=== PATIENT | female | born 1935 | race Caucasian/White ===

== ENCOUNTER 2018-02-09 14:23 | Emergency (ER) | payer MEDICARE, OTHER ==
[2018-02-09] MEDS ORDERED: Sodium Chloride 0.9% 10 ML Syringe FLUSH PRN (14:47)
[2018-02-09] MEDS ORDERED: Aspirin 81 MG Tab.Chew PO ONE (14:47)
[2018-02-09] MEDS ORDERED: Nitroglycerin 0.4 MG Tab.SL SL PRN (14:47)
--- NOTE | 2018-02-09 14:55 | EDM.PDOC ---
ED HPI GENERAL MEDICAL PROBLEM - General Chief Complaint: Chest Pain Time Seen by Provider: 02/09/18 14:40 Source of Information: Reports: Patient, RN History Limitations: Reports: No Limitations - History of Present Illness INITIAL COMMENTS - FREE TEXT/NARRATIVE: 82 yr female presents with mid sternal chest pain and radiates into back. States started around 45 minutes ago. She has had ASA 324mg PO now. EKG with nonspecific ST and T wave abnormality. - Related Data Allergies Allergy/AdvReac Type Severity Reaction Status Date / Time lisinopril Allergy Cannot Verified 05/24/16 09:51 Remember Home Meds: Home Meds Amitriptyline [Elavil] 25 mg PO QPM 10/19/14 [History] Atenolol [Tenormin] 50 mg PO DAILY 10/19/14 [History] Cyclobenzaprine [Flexeril] 5 mg PO QPM 10/19/14 [History] Omeprazole [Prilosec] 20 mg PO DAILY 10/19/14 [History] Pravastatin [Pravachol] 40 mg PO DAILY 10/19/14 [History] Sertraline HCl 50 mg PO DAILY 10/19/14 [History] amLODIPine Besylate [Amlodipine Besylate] 5 mg PO DAILY 10/19/14 [History] metFORMIN [Glucophage] 500 mg PO BID 10/19/14 [History] Hydrochlorothiazide 25 mg PO DAILY 04/08/16 [History] L.acidoph,Paracasei, B.lactis [Probiotic] 1 each PO DAILY 04/08/16 [History] Naproxen Sodium [Aleve] 2 tab PO DAILY 04/08/16 [History] Warfarin [Coumadin] 2 mg PO DAILY 04/08/16 [History] Past Medical History Cardiovascular History: Reports: Angina, High Cholesterol, Hypertension Gastrointestinal History: Reports: GERD, Irritable Bowel Syndrome 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: Musculoskeletal History: Reports: Arthritis, Osteoarthritis Neurological History: Reports: CVA Psychiatric History: Reports: Depression, Panic Attack Endocrine/Metabolic History: Reports: Diabetes, Type II - Infectious Disease History Infectious Disease History: Reports: Chicken Pox, Measles - Past Surgical History HEENT Surgical History: Reports: Tonsillectomy GI Surgical History: Reports: Appendectomy, Cholecystectomy ED ROS GENERAL - Review of Systems Review Of Systems: See Below Constitutional: Reports: No Symptoms HEENT: Reports: No Symptoms Respiratory: Reports: No Symptoms Cardiovascular: Reports: Chest Pain. Denies: Edema GI/Abdominal: Reports: No Symptoms Musculoskeletal: Reports: Back Pain Skin: Reports: No Symptoms Neurological: Reports: No Symptoms Psychiatric: Reports: No Symptoms Hematologic/Lymphatic: Reports: No Symptoms ED EXAM, GENERAL - Physical Exam Exam: See Below Exam Limited By: No Limitations General Appearance: Alert, No Apparent Distress Ears: Hearing Grossly Normal Nose: Normal Inspection Throat/Mouth: Normal Inspection, No Airway Compromise Head: Atraumatic, Normocephalic Neck: Normal Inspection, Supple, Non-Tender Respiratory/Chest: No Respiratory Distress, Lungs Clear, Normal Breath Sounds Cardiovascular: Normal Peripheral Pulses, Regular Rate, Rhythm, No Edema GI/Abdominal: Soft, Non-Tender Back Exam: Normal Inspection Extremities: Normal Inspection, Non-Tender, No Pedal Edema, Normal Capillary Refill Neurological: Alert, Oriented, Normal Cognition Psychiatric: Normal Affect, Normal Mood Skin Exam: Warm, Dry, Normal Color Lymphatic: No Adenopathy Course - Vital Signs Last Recorded V/S: Last Vital Signs Temp 97.6 F 02/09/18 14:28 Pulse 70 02/09/18 14:28 Resp 12 02/09/18 14:28 BP 156/54 H 02/09/18 14:50 Pulse Ox 100 02/09/18 14:28 - Orders/Labs/Meds Orders: Active Orders 24 hr Category Date Time Status Cardiac Monitoring [RC] .As Directed Care 02/09/18 14:47 Active EKG Documentation Completion [RC] ASDIRECTED Care 02/09/18 14:48 Active Chest 1V Frontal [CR] Stat Exams 02/09/18 14:48 Ordered Nitroglycerin [Nitrostat] Med 02/09/18 14:47 Active 0.4 mg SL Q5M PRN Sodium Chloride 0.9% [Saline Flush] Med 02/09/18 14:47 Active 10 ml FLUSH ASDIRECTED PRN Saline Lock Insert [OM.PC] Stat Oth 02/09/18 14:47 Ordered Medication Orders Nitroglycerin (Nitrostat) 0.4 mg SL Q5M PRN PRN Reason: Chest Pain Stop: 02/10/18 14:47 Last Admin: 02/09/18 14:50 Dose: 0.4 mg Sodium Chloride (Saline Flush) 10 ml FLUSH ASDIRECTED PRN PRN Reason: Keep Vein Open Labs: Laboratory Tests 02/09/18 02/09/18 Range/Units 14:47 14:47 WBC 8.9 (4.0-11.0) K/uL RBC 4.14 (3.80-5.80) M/uL Hgb 10.4 L (11.5-16.5) g/dL Hct 32.7 L (37.0-47.0) % MCV 79 (76-96) fL MCH 25.1 L (27.0-32.0) pg MCHC 31.8 (31.0-35.0) g/dL RDW 15.5 (11.0-16.0) % Plt Count 247 (150-500) K/uL MPV 10.4 H (6.0-10.0) fL Neut % (Auto) 65.6 (45.0-70.0) % Lymph % (Auto) 24.4 (20.0-40.0) % Houghton % (Auto) 7.9 (3.0-10.0) % Eos % (Auto) 1.8 (1.0-5.0) % Baso % (Auto) 0.3 (0.0-0.5) % Neut # (Auto) 5.85 (2.00-7.50) K/uL Lymph # (Auto) 2.17 (1.50-4.00) K/uL Houghton # (Auto) 0.70 (0.20-0.80) K/uL Eos # (Auto) 0.16 (0.04-0.40) K/uL Baso # (Auto) 0.03 (0.02-0.10) K/uL Sodium 139 (136-145) mmol/L Potassium 3.8 (3.5-5.1) mmol/L Chloride 103 (98-107) mmol/L Carbon Dioxide 23.9 (21.0-32.0) mmol/L Anion Gap 15.9 H (5.0-15.0) mmol/L BUN 23 (8-26) mg/dL Creatinine 1.41 H (0.55-1.02) mg/dL Est Cr Clr Drug Dosing TNP Estimated GFR (MDRD) 36 L (>60) MLS/MIN BUN/Creatinine Ratio 16.3 (6-25) Glucose 136 H D (74-100) mg/dL Calcium 8.8 (8.5-10.1) mg/dL Total Bilirubin 0.4 (0.0-1.0) mg/dL AST 30 (15-37) U/L ALT 24 (12-78) U/L Alkaline Phosphatase 83 (46-116) U/L Troponin I < 0.017 (0.000-0.060) ng/mL Total Protein 8.3 H (6.4-8.2) g/dL Albumin 3.9 (3.4-5.0) g/dL Globulin 4.4 H (2.2-4.2) g/dL Albumin/Globulin Ratio 0.9 (0.8-2.0) Meds: Medications Generic Name Dose Route Start Last Admin Trade Name Freq PRN Reason Stop Dose Admin Nitroglycerin 0.4 mg 02/09/18 14:47 02/09/18 14:50 Nitrostat SL 02/10/18 14:47 0.4 mg Q5M PRN Administration Chest Pain Sodium Chloride 10 ml 02/09/18 14:47 Saline Flush FLUSH ASDIRECTED PRN Keep Vein Open Discontinued Medications Generic Name Dose Route Start Last Admin Trade Name Freq PRN Reason Stop Dose Admin Aspirin 324 mg 02/09/18 14:47 02/09/18 14:30 Aspirin PO 02/09/18 14:48 324 mg ONETIME ONE Administration - Re-Assessments/Exams Free Text/Narrative Re-Assessment/Exam: 02/09/18 15:52 Pt states no more chest pain. Family report pt having more stress with taking care of another's sibling, dog. ASA and nitro 1 tablet given and no more chest pain. Pt may take Nitro 1 tablet under tongue at home, if chest pain. Take while sitting and if family is with her, if pain unrelieved , call 911. Pt to return to ER if chest pain returns. F/U in clinic next week with PCP. Departure - Departure Time of Disposition: 15:45 Disposition: Home, Self-Care 01 Condition: Good Clinical Impression: Atypical chest pain Instructions: Nitroglycerin sustained-release tablets or capsules, Angina Pectoris, [id number] Referrals: PCP,None [Primary Care Provider] - Forms: ED Department Discharge Additional Instructions: Follow up with primary care provider in the clinic in 1 week and have hemaglobin re-checked - My Orders Last 24 Hours: My Active Orders 02/09/18 14:47 Cardiac Monitoring [RC] .As Directed Nitroglycerin [Nitrostat] 0.4 mg SL Q5M PRN Sodium Chloride 0.9% [Saline Flush] 10 ml FLUSH ASDIRECTED PRN Saline Lock Insert [OM.PC] Stat 02/09/18 14:48 EKG Documentation Completion [RC] ASDIRECTED Chest 1V Frontal [CR] Stat - Assessment/Plan Last 24 Hours: My Active Orders 02/09/18 14:47 Cardiac Monitoring [RC] .As Directed Nitroglycerin [Nitrostat] 0.4 mg SL Q5M PRN Sodium Chloride 0.9% [Saline Flush] 10 ml FLUSH ASDIRECTED PRN Saline Lock Insert [OM.PC] Stat 02/09/18 14:48 EKG Documentation Completion [RC] ASDIRECTED Chest 1V Frontal [CR] Stat
[2018-02-09 15:24] VITALS: BP 156/54
--- NOTE | 2018-02-09 17:33 | CR ---
DATE OF SERVICE: 02/09/18 CLINICAL DATA: Chest Pain PORTABLE CHEST: Comparison is made to a prior exam dated 04/15/17. The heart is enlarged. It is increased in size from the prior exam. The lungs appear clear. No pneumothorax. No pleural effusions. No other significant findings. [id number] [facility]
== END 2018-02-09 14:45 | disposition home or self-care (01) ==
LOC: LB.ED 14:23
DX: R07.89 Other chest pain (principal); E78.00 Pure hypercholesterolemia, unspecified; I10 Essential (primary) hypertension; K21.9 Gastro-esophageal reflux disease without esophagitis; E11.9 Type 2 diabetes mellitus without complications; Z88.8 Allergy status to other drugs, medicaments and biological substances; Z79.899 Other long term (current) drug therapy; Z79.84 Long term (current) use of oral hypoglycemic drugs; Z79.01 Long term (current) use of anticoagulants
CPT/HCPCS: 36415; 71045; 80053; 84484; 85025; 93005; 99285; A9270

== ENCOUNTER 2018-10-31 13:34 | Emergency (ER) | payer MEDICARE, OTHER ==
[2018-10-31 14:04] VITALS: BP 145/51
--- NOTE | 2018-10-31 14:53 | EDM.PDOC ---
ED HPI GENERAL MEDICAL PROBLEM - General Chief Complaint: Head Injury Stated Complaint: FALL AT 0930 TODAY Time Seen by Provider: 10/31/18 14:00 - History of Present Illness Treatments FLAMER AFTER LASTING: Reports: NSAIDS right upper eye Pain Score (Numeric/FACES): 1 - Related Data Allergies Allergy/AdvReac Type Severity Reaction Status Date / Time lisinopril Allergy Cannot Verified 05/24/16 09:51 Remember Home Meds: Home Meds Atenolol [Tenormin] 50 mg PO DAILY 10/19/14 [History] Omeprazole [Prilosec] 20 mg PO DAILY 10/19/14 [History] Pravastatin [Pravachol] 40 mg PO DAILY 10/19/14 [History] Sertraline HCl 50 mg PO DAILY 10/19/14 [History] amLODIPine Besylate [Amlodipine Besylate] 5 mg PO DAILY 10/19/14 [History] metFORMIN [Glucophage] 500 mg PO BID 10/19/14 [History] Hydrochlorothiazide 25 mg PO DAILY 04/08/16 [History] L.acidoph,Paracasei, B.lactis [Probiotic] 1 each PO DAILY 04/08/16 [History] Naproxen Sodium [Aleve] 2 tab PO DAILY 04/08/16 [History] Warfarin [Coumadin] 2 mg PO DAILY 04/08/16 [History] Past Medical History Cardiovascular History: Reports: Angina, High Cholesterol, Hypertension Gastrointestinal History: Reports: GERD, Irritable Bowel Syndrome 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 ED EXAM, HEAD INJURY - Physical Exam Exam: See Below Exam Limited By: No Limitations General Appearance: Alert, WD/WN, No Apparent Distress Head: Normocephalic, Scalp Abrasions, Scalp Ecchymosis, Scalp Hematoma, Other ( bruising with overlying abrasion right forehead and around eye.) Eyes: Bilateral Eye: Normal Fundi, Normal Inspection, PERRL Ears: Normal External Exam Nose: Normal Inspection Throat/Mouth: Normal Inspection Neck: Non-Tender, Full Range of Motion, Normal Alignment, Normal Inspection Respiratory: No Respiratory Distress, No Accessory Muscle Use Extremities: Normal Range of Motion Neurologic: Alert, Normal Mood/Affect, Oriented x 3 Skin: Normal Color, Warm/Dry - Joseph Coma Score Best Eye Response (Merlin): (4) Open Spontaneously Best Verbal Response (Joseph): (5) Oriented Best Motor Response (Merlin): (6) Obeys Commands Course - Vital Signs Last Recorded V/S: Last Vital Signs Temp 36.2 C 10/31/18 13:50 Pulse 62 10/31/18 13:50 Resp 16 10/31/18 13:50 BP 145/51 H 10/31/18 13:50 Pulse Ox 95 10/31/18 13:50 - Orders/Labs/Meds Orders: Active Orders 24 hr Category Date Time Status Head wo Cont [CT] Stat Exams 10/31/18 14:06 Taken - Re-Assessments/Exams Free Text/Narrative Re-Assessment/Exam: 10/31/18 14:51 This patient presents for evaluation after trauma to the head as detailed above. This patient has a history and clinical exam consistent with closed head injury The differential diagnosis includes skull fracture, epidural hematoma, subdural hematoma, intracerebral hemorrhage, and traumatic subarachnoid hemorrhage; all of these are highly unlikely in this clinical setting. This patient denies severe headache, seizure, and has no focal neurological findings. The patient did not have prolonged LOC, sleepiness, repeated emesis, poor orientation, or significant irritability. I have discussed the risk/ benefit analysis with the patient and family regarding CT imaging. Given her use of Coumadin, a head CT was obtained and was negative for acute findings. The patient/family understand that they must return if any "red flags" appear/ develop in the coming hours/days, as this may represent an indication to perform a CT scan. I have noted that "red flags" for when to return immediately include: headaches that get worse, increased drowsiness, strange behavior, repetitive speech, seizures, repeated vomiting, growing confusion, increased irritability, slurred speech, weakness or numbness, and loss of responsiveness. This information will also be provided in writing at discharge. I have discussed the second impact syndrome, and the importance of not sustaining repeated concussion in the next 1-2 weeks. Post concussive syndrome is also discussed. The patients head to toe trauma exam is otherwise negative for serious underlying disease of the head, neck, chest, abdomen, extremities, pelvis. Departure - Departure Time of Disposition: 14:52 Disposition: Home, Self-Care 01 Condition: Good Clinical Impression: Closed head injury - Discharge Information *PRESCRIPTION DRUG MONITORING PROGRAM REVIEWED*: Not Applicable *COPY OF PRESCRIPTION DRUG MONITORING REPORT IN PATIENT KRISTOPHER: Not Applicable Instructions: Head Injury, Adult, [id number] - My Orders Last 24 Hours: My Active Orders 10/31/18 14:06 Head wo Cont [CT] Stat - Assessment/Plan Last 24 Hours: My Active Orders 10/31/18 14:06 Head wo Cont [CT] Stat
--- NOTE | 2018-11-02 05:14 | CT ---
DATE OF SERVICE: 10/31/18 CLINICAL DATA: Head injury. UNENHANCED BRAIN CT: Multislice acquisition through the brain without IV contrast was performed. Comparison is made to a prior exam dated 06/18/12. There is diffuse cerebral atrophy. There are periventricular lucencies bilaterally consistent with small vessel ischemic change. No masses or mass effect. No intracranial hemorrhage. No evidence of acute or subacute infarct. There is hyperdense soft tissue swelling of the scalp in the right anterior parietal region consistent with a cephalohematoma. No underlying fractures. IMPRESSION: No acute intracranial abnormalities. [id number] [facility]
== END 2018-10-31 14:52 | disposition home or self-care (01) ==
LOC: LB.ED 13:34
DX: S00.03XA Contusion of scalp, initial encounter (principal); S00.83XA Contusion of other part of head, initial encounter; S00.11XA Contusion of right eyelid and periocular area, initial encounter; S09.90XA Unspecified injury of head, initial encounter; E78.00 Pure hypercholesterolemia, unspecified; I10 Essential (primary) hypertension; K21.9 Gastro-esophageal reflux disease without esophagitis; F32.9 Major depressive disorder, single episode, unspecified; E11.9 Type 2 diabetes mellitus without complications; Z88.8 Allergy status to other drugs, medicaments and biological substances; Z79.01 Long term (current) use of anticoagulants; W19.XXXA Unspecified fall, initial encounter
CPT/HCPCS: 70450; 99283-25

== ENCOUNTER 2019-07-08 23:43 | Emergency (ER) | payer MEDICARE, OTHER ==
--- NOTE | 2019-07-09 00:19 | EDM.PDOC ---
ED HPI GENERAL MEDICAL PROBLEM - General Chief Complaint: Head Injury Stated Complaint: FALL AT HOME Time Seen by Provider: 07/09/19 00:05 Source of Information: Reports: Patient History Limitations: Reports: No Limitations - History of Present Illness INITIAL COMMENTS - FREE TEXT/NARRATIVE: This is a 83yo F here for a recent fall and hitting her head. She was leaning and hit her head pretty hard on the wall. She denies any loss of consciousness. She is on anticoagulation. Onset: Sudden Location: Reports: Head Quality: Reports: Ache Severity: Mild Improves with: Reports: None Worsens with: Reports: None Associated Symptoms: Reports: No Other Symptoms - Related Data Allergies Allergy/AdvReac Type Severity Reaction Status Date / Time lisinopril Allergy Cannot Verified 10/31/18 15:08 Remember Home Meds: Home Meds Omeprazole [Prilosec] 20 mg PO DAILY 10/19/14 [History] Pravastatin [Pravachol] 40 mg PO DAILY 10/19/14 [History] Sertraline HCl 50 mg PO DAILY 10/19/14 [History] amLODIPine Besylate [Amlodipine Besylate] 5 mg PO DAILY 10/19/14 [History] atenoloL [Tenormin] 50 mg PO DAILY 10/19/14 [History] metFORMIN [Glucophage] 500 mg PO BID 10/19/14 [History] Hydrochlorothiazide 25 mg PO DAILY 04/08/16 [History] L.acidoph,Paracasei, B.lactis [Probiotic] 1 each PO DAILY 04/08/16 [History] Naproxen Sodium [Aleve] 2 tab PO DAILY PRN 04/08/16 [History] Warfarin [Coumadin] 2 mg PO DAILY 04/08/16 [History] Past Medical History Cardiovascular History: Reports: Angina, High Cholesterol, Hypertension Gastrointestinal History: Reports: GERD, Irritable Bowel Syndrome 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 ED EXAM, HEAD INJURY - Physical Exam Exam: See Below Exam Limited By: No Limitations General Appearance: Alert, WD/WN, No Apparent Distress Head: Scalp Swelling, Scalp Abrasions, Scalp Tenderness Eyes: Bilateral Eye: EOMI, PERRL Ears: Normal External Exam Nose: Normal Inspection Course - Vital Signs Last Recorded V/S: Last Vital Signs Temp 36.9 C 07/09/19 00:35 Pulse 78 07/09/19 00:35 Resp 18 07/09/19 00:35 BP 152/83 H 07/09/19 00:35 Pulse Ox Departure - Departure Time of Disposition: 00:55 Disposition: Home, Self-Care 01 Condition: Good Clinical Impression: Fall Qualifiers: Encounter type: initial encounter Qualified Code(s): W19.XXXA - Unspecified fall, initial encounter Head contusion Qualifiers: Encounter type: initial encounter Contusion of head detail: scalp Qualified Code(s): S00.03XA - Contusion of scalp, initial encounter - Discharge Information Referrals: Lencho Pandey MD [Primary Care Provider] - Forms: ED Department Discharge Sepsis Event Note - Focused Exam Date Exam was Performed: 07/09/19 Time Exam was Performed: 15:19 - Problem List & Annotations (1) Closed head injury SNOMED Code(s): 029969219766 Code(s): S09.90XA - UNSPECIFIED INJURY OF HEAD, INITIAL ENCOUNTER Status: Acute Priority: High Qualifiers: Encounter type: initial encounter Qualified Code(s): S09.90XA - Unspecified injury of head, initial encounter (2) Fall SNOMED Code(s): 5406514, 125628685 Code(s): W19.XXXA - UNSPECIFIED FALL, INITIAL ENCOUNTER Status: Acute Priority: High Qualifiers: Encounter type: initial encounter Qualified Code(s): W19.XXXA - Unspecified fall, initial encounter (3) Head contusion SNOMED Code(s): 386428927 Code(s): S00.93XA - CONTUSION OF UNSPECIFIED PART OF HEAD, INITIAL ENCOUNTER Status: Acute Priority: High Qualifiers: Encounter type: initial encounter Contusion of head detail: scalp Qualified Code(s): S00.03XA - Contusion of scalp, initial encounter - Problem List Review Problem List Initiated/Reviewed/Updated: Yes - Assessment/Plan Plan: Counseled on CT results. Discussed close monitoring of Neurological status and f /u for any changes. Rtc as routine f/u. Return to ER as directed.
[2019-07-09 00:37] VITALS: BP 152/83; PULSE 78
--- NOTE | 2019-07-09 09:15 | CT ---
Date of Service: 07/08/19 Clinical Data: Fall and hit head and is on anticoagulation UNENHANCED BRAIN CT: Multislice acquisition through the brain without IV contrast was performed. Comparison is made to a prior exam dated 10/31/18. There is mild diffuse cerebral atrophy. There are periventricular lucencies bilaterally consistent with small vessel ischemic change. No masses or mass effect. No intracranial hemorrhage. No evidence of acute or subacute infarct. No fractures. IMPRESSION: No acute intracranial abnormalities. [id number] [facility]
== END 2019-07-09 00:58 | disposition home or self-care (01) ==
LOC: LB.ED 23:43
DX: S00.03XA Contusion of scalp, initial encounter (principal); E11.9 Type 2 diabetes mellitus without complications; I10 Essential (primary) hypertension; Z79.899 Other long term (current) drug therapy; Z79.01 Long term (current) use of anticoagulants; Z88.8 Allergy status to other drugs, medicaments and biological substances; W19.XXXA Unspecified fall, initial encounter
CPT/HCPCS: 70450; 99283; 99283-25

== ENCOUNTER 2021-06-14 12:41 | Observation (INO) | payer MEDICARE, OTHER ==
[2021-06-14] MEDS ORDERED: Sodium Chloride 0.9% 500 ML IV ONE (14:05)
[2021-06-14] MEDS ORDERED: Sodium Chloride 0.9% 10 ML Syringe FLUSH PRN (14:05)
[2021-06-14] MEDS: Albuterol/Ipratropium 3.0-0.5 MG/3 ML Neb Soln NEB PRN (14:18)
--- NOTE | 2021-06-14 14:23 | EDM.PDOC ---
ED HPI GENERAL MEDICAL PROBLEM - General Chief Complaint: Respiratory Problem Stated Complaint: NOT FEELING WELL Time Seen by Provider: 06/14/21 14:00 Source of Information: Reports: Patient, Family History Limitations: Reports: No Limitations - History of Present Illness INITIAL COMMENTS - FREE TEXT/NARRATIVE: 85-year-old female presents to the ED complaining of not feeling well, cough, diarrhea. Patient had a gradual onset of her illness starting on June 01. Symptoms continued to get worse at a gradual rate associated with decreased oral intake and weakness/fatigue. Patient has not felt this poor in the past. Patient has somewhere between 3-4 episodes of diarrhea daily. Patient denies chest pain, shortness of breath, dizzy lightheaded/syncope/near syncope, co nstipation, headache, difficulty swallowing, red swollen joints, rash, trauma. Treatments [employer]: Reports: Acetaminophen, Other (see below) (Emergent C) - Related Data Allergies Allergy/AdvReac Type Severity Reaction Status Date / Time lisinopril Allergy Cannot Verified 10/31/18 15:08 Remember Home Meds: Home Meds Omeprazole [Prilosec] 20 mg PO DAILY 10/19/14 [History] Pravastatin [Pravachol] 40 mg PO DAILY 10/19/14 [History] Sertraline HCl 50 mg PO DAILY 10/19/14 [History] amLODIPine Besylate [Amlodipine Besylate] 5 mg PO DAILY 10/19/14 [History] atenoloL [Tenormin] 50 mg PO DAILY 10/19/14 [History] metFORMIN [Glucophage] 500 mg PO BID 10/19/14 [History] Hydrochlorothiazide 25 mg PO DAILY 04/08/16 [History] L.acidoph,Paracasei, B.lactis [Probiotic] 1 each PO DAILY 04/08/16 [History] Naproxen Sodium [Aleve] 2 tab PO DAILY PRN 04/08/16 [History] Warfarin [Coumadin] 2 mg PO DAILY 04/08/16 [History] Past Medical History Cardiovascular History: Reports: Angina, High Cholesterol, Hypertension, Other (See Below) (Irregular heartbeat) Gastrointestinal History: Reports: GERD, Irritable Bowel Syndrome [employer] History: Reports: Musculoskeletal History: Reports: Arthritis, Osteoarthritis Neurological History: Reports: CVA Psychiatric History: Reports: Depression, Panic Attack Endocrine/Metabolic History: Reports: Diabetes, Type II - Infectious Disease History Infectious Disease History: Reports: Chicken Pox, Measles - Past Surgical History HEENT Surgical History: Reports: Tonsillectomy GI Surgical History: Reports: Appendectomy, Cholecystectomy Social & Family History - Family History Family Medical History: Unobtainable - Caffeine Use Caffeine Use: Reports: None ED ROS GENERAL - Review of Systems Review Of Systems: Comprehensive ROS is negative, except as noted in HPI. ED EXAM, GENERAL - Physical Exam Exam: See Below Free Text/Narrative:: 85-year-old female, ABC intact, no apparent distress, speaking in full sentences alert and oriented through three GCS 4 five six no obvious trauma Exam Limited By: No Limitations General Appearance: Alert, WD/WN, No Apparent Distress Eye Exam: Bilateral Eye: EOMI, PERRL Ears: Normal External Exam, Normal Canal, Hearing Grossly Normal, Normal TMs Ear Exam: Bilateral Ear: TM normal Nose: Normal Inspection, Normal Mucosa, No Blood Throat/Mouth: Normal Lips, Other (Mild erythema to the posterior pharynx tonsils and uvula, no exudate, evidence of postnasal drip.) Head: Atraumatic, Normocephalic Neck: Normal Inspection, Non-Tender. 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 tillman) Cardiovascular: No Edema, No JVD, Other (Regular rate, irregular rhythm) GI/Abdominal: Soft, Non-Tender, No Distention, No Mass Back Exam: Normal Inspection, CVA Tenderness (R), CVA Tenderness (L) Extremities: Normal Inspection, Normal Range of Motion, Non-Tender, No Pedal Edema, Normal Capillary Refill Neurological: Alert, Oriented, Normal Cognition Psychiatric: Normal Affect, Normal Mood Skin Exam: Warm, Dry, Intact, Normal Color, No Rash Lymphatic: No Adenopathy #1 Interpretation EKG Date: 06/14/21 (Atrial fibrillation, without rapid ventricular response, ST depression in V2 V3 V4 V5 V6) Rhythm: A-Fib Course - Vital Signs Last Recorded V/S: Last Vital Signs Temp 97.3 F 06/14/21 13:48 Pulse 87 06/14/21 13:48 Resp 18 06/14/21 13:48 BP 109/51 L 06/14/21 13:48 Pulse Ox 98 06/14/21 13:48 - Orders/Labs/Meds Orders: Active Orders 24 hr Category Date Time Status Patient Status [ADT] Routine ADT 06/14/21 15:58 Active Cardiac Monitoring [RC] CONTINUOUS Care 06/14/21 16:04 Active Oxygen Therapy [RC] PRN Care 06/14/21 15:58 Active Pulse Oximetry [RC] CONTINUOUS Care 06/14/21 16:04 Active RT Aerosol Therapy [RC] ASDIRECTED Care 06/14/21 14:05 Active Up With Assistance [RC] ASDIRECTED Care 06/14/21 16:03 Active VTE/DVT Education [RC] Per Unit Routine Care 06/14/21 15:58 Active Vital Signs [RC] Q4H Care 06/14/21 15:58 Active Regular Diet [DIET] Diet 06/14/21 Dinner Ordered Chest 1V Frontal [CR] Stat Exams 06/14/21 14:58 Taken CORONAVIRUS COVID-19 RAPID [MOLEC] Stat Lab 06/14/21 13:35 Ordered INR,PT,PROTHROMBIN TIME [COAG] Stat Lab 06/14/21 15:25 Ordered UA RFX SORAYA AND CULT IF INDIC [URIN] Stat Lab 06/14/21 14:30 Ordered Albuterol/Ipratropium [DuoNeb 3.0-0.5 MG/3 ML] Med 06/14/21 14:05 Active 3 ml NEB Q2H PRN Sodium Chloride 0.9% [Saline Flush] Med 06/14/21 14:05 Active 10 ml FLUSH ASDIRECTED PRN Antiembolic Hose [OM.PC] Per Unit Routine Oth 06/14/21 16:04 Ordered Saline Lock Insert [OM.PC] Routine Oth 06/14/21 14:05 Ordered Resuscitation Status Routine Resus Stat 06/14/21 15:58 Ordered EKG 12 Lead [EK] Routine Ther 06/14/21 14:01 Ordered Medication Orders Albuterol/Ipratropium (Albuterol/Ipratropium 3.0-0.5 Mg/3 Ml Neb Soln) 3 ml NEB Q2H PRN PRN Reason: Cough Last Admin: 06/14/21 14:18 Dose: 3 ml Documented by: DEMETRIUS Sodium Chloride (Sodium Chloride 0.9% 10 Ml Syringe) 10 ml FLUSH ASDIRECTED PRN PRN Reason: Keep Vein Open Labs: Laboratory Tests 06/14/21 06/14/21 06/14/21 Range/Units 02:18 02:18 02:18 WBC 14.5 H D (4.0-11.0) K/uL RBC 3.86 (3.80-5.80) M/uL Hgb 9.9 L (11.5-16.5) g/dL Hct 29.0 L (37.0-47.0) % MCV 75 L (76-96) fL MCH 25.6 L (27.0-32.0) pg MCHC 34.1 (31.0-35.0) g/dL RDW 16.1 H (11.0-16.0) % Plt Count 645 H* D (150-500) K/uL MPV 10.1 H (6.0-10.0) fL Neut % (Auto) 84.6 H (45.0-70.0) % Lymph % (Auto) 7.5 L (20.0-40.0) % Dyer % (Auto) 7.7 (3.0-10.0) % Eos % (Auto) 0.1 L (1.0-5.0) % Baso % (Auto) 0.1 (0.0-0.5) % Neut # (Auto) 12.27 H (2.00-7.50) K/uL Lymph # (Auto) 1.09 L (1.50-4.00) K/uL Dyer # (Auto) 1.12 H (0.20-0.80) K/uL Eos # (Auto) 0.02 L (0.04-0.40) K/uL Baso # (Auto) 0.02 (0.02-0.10) K/uL D-Dimer, Quantitative 2080 H (0-400) ng/mL Sodium 128 L (136-145) mmol/L Potassium 2.6 L* D (3.5-5.1) mmol/L Chloride 94 L (98-107) mmol/L Carbon Dioxide 18.2 L (21.0-32.0) mmol/L Anion Gap 18.4 H (5.0-15.0) mmol/L BUN 76 H* D (8-26) mg/dL Creatinine 1.82 H D (0.55-1.02) mg/dL Est Cr Clr Drug Dosing TNP Estimated GFR (MDRD) 26 L (>60) MLS/MIN BUN/Creatinine Ratio 41.8 H (6-25) Glucose 138 H D (74-100) mg/dL Lactic Acid (0.4-2.0) mmol/L Calcium 7.8 L (8.5-10.1) mg/dL Magnesium (1.8-2.4) mg/dL Total Bilirubin 0.5 D (0.0-1.0) mg/dL AST 63 H (15-37) U/L ALT 79 H (12-78) U/L Alkaline Phosphatase 160 H (46-116) U/L Troponin I 0.017 (0.000-0.060) ng/mL Total Protein 8.6 H (6.4-8.2) g/dL Albumin 2.7 L (3.4-5.0) g/dL Globulin 5.9 H (2.2-4.2) g/dL Albumin/Globulin Ratio 0.5 L (0.8-2.0) SARS-CoV-2 RNA (SCOTT) (NEGATIVE) 06/14/21 06/14/21 06/14/21 Range/Units 13:42 14:15 14:18 WBC (4.0-11.0) K/uL RBC (3.80-5.80) M/uL Hgb (11.5-16.5) g/dL Hct (37.0-47.0) % MCV (76-96) fL MCH (27.0-32.0) pg MCHC (31.0-35.0) g/dL RDW (11.0-16.0) % Plt Count (150-500) K/uL MPV (6.0-10.0) fL Neut % (Auto) (45.0-70.0) % Lymph % (Auto) (20.0-40.0) % Dyer % (Auto) (3.0-10.0) % Eos % (Auto) (1.0-5.0) % Baso % (Auto) (0.0-0.5) % Neut # (Auto) (2.00-7.50) K/uL Lymph # (Auto) (1.50-4.00) K/uL Dyer # (Auto) (0.20-0.80) K/uL Eos # (Auto) (0.04-0.40) K/uL Baso # (Auto) (0.02-0.10) K/uL D-Dimer, Quantitative (0-400) ng/mL Sodium (136-145) mmol/L Potassium (3.5-5.1) mmol/L Chloride (98-107) mmol/L Carbon Dioxide (21.0-32.0) mmol/L Anion Gap (5.0-15.0) mmol/L BUN (8-26) mg/dL Creatinine (0.55-1.02) mg/dL Est Cr Clr Drug Dosing Estimated GFR (MDRD) (>60) MLS/MIN BUN/Creatinine Ratio (6-25) Glucose (74-100) mg/dL Lactic Acid 1.5 (0.4-2.0) mmol/L Calcium (8.5-10.1) mg/dL Magnesium 1.2 L (1.8-2.4) mg/dL Total Bilirubin (0.0-1.0) mg/dL AST (15-37) U/L ALT (12-78) U/L Alkaline Phosphatase (46-116) U/L Troponin I (0.000-0.060) ng/mL Total Protein (6.4-8.2) g/dL Albumin (3.4-5.0) g/dL Globulin (2.2-4.2) g/dL Albumin/Globulin Ratio (0.8-2.0) SARS-CoV-2 RNA (SCOTT) Positive H (NEGATIVE) Meds: Medications Generic Name Dose Route Start Last Admin Trade Name Freq PRN Reason Stop Dose Admin Albuterol/Ipratropium 3 ml 06/14/21 14:05 06/14/21 14:18 Albuterol/Ipratropium 3.0-0.5 Mg/3 Ml Neb Soln NEB 3 ml Q2H PRN Administration Cough Sodium Chloride 10 ml 06/14/21 14:05 Sodium Chloride 0.9% 10 Ml Syringe FLUSH ASDIRECTED PRN Keep Vein Open Discontinued Medications Generic Name Dose Route Start Last Admin Trade Name Freq PRN Reason Stop Dose Admin Azithromycin Confirm 06/14/21 15:35 Azithromycin 500 Mg Tab Administered 06/14/21 15:36 Dose 500 mg .ROUTE .STK-MED ONE Sodium Chloride 500 mls @ 500 mls/hr 06/14/21 14:05 06/14/21 14:40 Normal Saline IV 06/14/21 15:04 500 mls/hr .BOLUS ONE Administration Potassium Chloride Confirm 06/14/21 15:36 Kcl In Water 10 Meq/50 Ml Administered 06/14/21 15:37 Dose 200 mls @ as directed .ROUTE .STK-MED ONE Lorazepam 0.5 mg 06/14/21 16:03 Lorazepam 2 Mg/Ml Sdv IV 06/14/21 16:04 ONETIME ONE Departure - Departure Time of Disposition: 16:15 Disposition: Refer to Observation Condition: Fair Clinical Impression: COVID-19, Hypokalemia due to excessive gastrointestinal loss of potassium, Dehydration - Discharge Information *PRESCRIPTION DRUG MONITORING PROGRAM REVIEWED*: No *COPY OF PRESCRIPTION DRUG MONITORING REPORT IN PATIENT KRISTOPHER: No Referrals: PCP,Unknown [Primary Care Provider] - Forms: ED Department Discharge Sepsis Event Note (ED) - Focused Exam Vital Signs: Vital Signs Temp Pulse Resp BP Pulse Ox 06/14/21 13:48 97.3 F 87 18 109/51 L 98 - My Orders Last 24 Hours: My Active Orders 06/14/21 13:35 CORONAVIRUS COVID-19 RAPID [MOLEC] Stat 06/14/21 14:01 EKG 12 Lead [EK] Routine 06/14/21 14:05 RT Aerosol Therapy [RC] ASDIRECTED Albuterol/Ipratropium [DuoNeb 3.0-0.5 MG/3 ML] 3 ml NEB Q2H PRN Sodium Chloride 0.9% [Saline Flush] 10 ml FLUSH ASDIRECTED PRN Saline Lock Insert [OM.PC] Routine 06/14/21 14:30 UA RFX SORAYA AND CULT IF INDIC [URIN] Stat 06/14/21 14:58 Chest 1V Frontal [CR] Stat 06/14/21 15:25 INR,PT,PROTHROMBIN TIME [COAG] Stat 06/14/21 15:58 Patient Status [ADT] Routine Oxygen Therapy [RC] PRN VTE/DVT Education [RC] Per Unit Routine Vital Signs [RC] Q4H Resuscitation Status Routine 06/14/21 16:03 Up With Assistance [RC] ASDIRECTED 06/14/21 16:04 Cardiac Monitoring [RC] CONTINUOUS Pulse Oximetry [RC] CONTINUOUS Antiembolic Hose [OM.PC] Per Unit Routine 06/14/21 Dinner Regular Diet [DIET] - Assessment/Plan Last 24 Hours: My Active Orders 06/14/21 13:35 CORONAVIRUS COVID-19 RAPID [MOLEC] Stat 06/14/21 14:01 EKG 12 Lead [EK] Routine 06/14/21 14:05 RT Aerosol Therapy [RC] ASDIRECTED Albuterol/Ipratropium [DuoNeb 3.0-0.5 MG/3 ML] 3 ml NEB Q2H PRN Sodium Chloride 0.9% [Saline Flush] 10 ml FLUSH ASDIRECTED PRN Saline Lock Insert [OM.PC] Routine 06/14/21 14:30 UA RFX SORAYA AND CULT IF INDIC [URIN] Stat 06/14/21 14:58 Chest 1V Frontal [CR] Stat 06/14/21 15:25 INR,PT,PROTHROMBIN TIME [COAG] Stat 06/14/21 15:58 Patient Status [ADT] Routine Oxygen Therapy [RC] PRN VTE/DVT Education [RC] Per Unit Routine Vital Signs [RC] Q4H Resuscitation Status Routine 06/14/21 16:03 Up With Assistance [RC] ASDIRECTED 06/14/21 16:04 Cardiac Monitoring [RC] CONTINUOUS Pulse Oximetry [RC] CONTINUOUS Antiembolic Hose [OM.PC] Per Unit Routine 06/14/21 Dinner Regular Diet [DIET] Assessment:: 1. COVID-19 2. Hypokalemia secondary to GI losses 3. Dehydration Plan: 1. COVID-19/coughsupportive treatment, albuterol Atrovent MDI every 4 hours as needed for cough and shortness of breath. Oxygen via nasal cannula as needed to support SPO2 greater than 92%. 6 mg Decadron IV as needed for SPO2 less than 94% on room air. Initiating Rocephin 1 g daily and Zithromax 500 mg daily for possible coinfection. 2. Hypokalemia due to GI lossreplenish/replace lost potassium 10 mEq/h for a total of 40 mEq, repeat BMP 5 hours after initiation, checking magnesium level to be addressed if necessary. 3. Dehydrationreplenish fluid loss with normal saline to a total of up to 30 mL/kg cautiously. Initial bolus of 500 cc. Per consultation with Dr. Sp saldana the medicine awaiting INR for VTE prophylaxis as necessary including JOSE L hose and Lovenox. Mag replacement at 2 g IV if necessary given labs. Considering stool culture.
[2021-06-14] MEDS ORDERED: Azithromycin 500 MG Tab ONE ×2 (15:35→16:50)
[2021-06-14] MEDS ORDERED: POTASSIUM CHLORIDE RIDERS ONE (15:36)
[2021-06-14] MEDS ORDERED: cefTRIAXone 1 GM in Sodium Chloride 0.9% 50 ML IV SCH (16:00)
[2021-06-14] MEDS: Azithromycin 250 MG Tab PO SCH (16:01)
[2021-06-14] MEDS ORDERED: LORazepam 2 MG/ML SDV IV ONE (16:03)
[2021-06-14] MEDS: Potassium Chloride Riders 10 MEQ in Premix Bag 1 BAG IV SCH ×4 (16:30→22:18)
[2021-06-14] MEDS ORDERED: Potassium Chloride 20 MEQ Tab.ER ONE (16:50)
--- NOTE | 2021-06-14 17:23 | PCM.PN ---
- General Info Date of Service: 06/14/21 - Patient Data Vitals - Most Recent: Last Vital Signs Temp 36.0 C L 06/14/21 17:00 Pulse 74 06/14/21 17:00 Resp 16 06/14/21 17:00 BP 122/52 L 06/14/21 17:00 Pulse Ox 100 06/14/21 17:00 Lab Results Last 24 Hours: Laboratory Results - last 24 hr 06/14/21 06/14/21 06/14/21 Range/Units 02:18 02:18 02:18 WBC 14.5 H D (4.0-11.0) K/uL RBC 3.86 (3.80-5.80) M/uL Hgb 9.9 L (11.5-16.5) g/dL Hct 29.0 L (37.0-47.0) % MCV 75 L (76-96) fL MCH 25.6 L (27.0-32.0) pg MCHC 34.1 (31.0-35.0) g/dL RDW 16.1 H (11.0-16.0) % Plt Count 645 H* D (150-500) K/uL MPV 10.1 H (6.0-10.0) fL Neut % (Auto) 84.6 H (45.0-70.0) % Lymph % (Auto) 7.5 L (20.0-40.0) % Harvey % (Auto) 7.7 (3.0-10.0) % Eos % (Auto) 0.1 L (1.0-5.0) % Baso % (Auto) 0.1 (0.0-0.5) % Neut # (Auto) 12.27 H (2.00-7.50) K/uL Lymph # (Auto) 1.09 L (1.50-4.00) K/uL Harvey # (Auto) 1.12 H (0.20-0.80) K/uL Eos # (Auto) 0.02 L (0.04-0.40) K/uL Baso # (Auto) 0.02 (0.02-0.10) K/uL PT (9.0-11.5) sec INR (1.0-3.5) D-Dimer, Quantitative 2080 H (0-400) ng/mL Sodium 128 L (136-145) mmol/L Potassium 2.6 L* D (3.5-5.1) mmol/L Chloride 94 L (98-107) mmol/L Carbon Dioxide 18.2 L (21.0-32.0) mmol/L Anion Gap 18.4 H (5.0-15.0) mmol/L BUN 76 H* D (8-26) mg/dL Creatinine 1.82 H D (0.55-1.02) mg/dL Est Cr Clr Drug Dosing TNP Estimated GFR (MDRD) 26 L (>60) MLS/MIN BUN/Creatinine Ratio 41.8 H (6-25) Glucose 138 H D (74-100) mg/dL Lactic Acid (0.4-2.0) mmol/L Calcium 7.8 L (8.5-10.1) mg/dL Magnesium (1.8-2.4) mg/dL Total Bilirubin 0.5 D (0.0-1.0) mg/dL AST 63 H (15-37) U/L ALT 79 H (12-78) U/L Alkaline Phosphatase 160 H (46-116) U/L Troponin I 0.017 (0.000-0.060) ng/mL Total Protein 8.6 H (6.4-8.2) g/dL Albumin 2.7 L (3.4-5.0) g/dL Globulin 5.9 H (2.2-4.2) g/dL Albumin/Globulin Ratio 0.5 L (0.8-2.0) SARS-CoV-2 RNA (SCOTT) (NEGATIVE) 06/14/21 06/14/21 06/14/21 Range/Units 13:42 14:15 14:18 WBC (4.0-11.0) K/uL RBC (3.80-5.80) M/uL Hgb (11.5-16.5) g/dL Hct (37.0-47.0) % MCV (76-96) fL MCH (27.0-32.0) pg MCHC (31.0-35.0) g/dL RDW (11.0-16.0) % Plt Count (150-500) K/uL MPV (6.0-10.0) fL Neut % (Auto) (45.0-70.0) % Lymph % (Auto) (20.0-40.0) % Harvey % (Auto) (3.0-10.0) % Eos % (Auto) (1.0-5.0) % Baso % (Auto) (0.0-0.5) % Neut # (Auto) (2.00-7.50) K/uL Lymph # (Auto) (1.50-4.00) K/uL Harvey # (Auto) (0.20-0.80) K/uL Eos # (Auto) (0.04-0.40) K/uL Baso # (Auto) (0.02-0.10) K/uL PT (9.0-11.5) sec INR (1.0-3.5) D-Dimer, Quantitative (0-400) ng/mL Sodium (136-145) mmol/L Potassium (3.5-5.1) mmol/L Chloride (98-107) mmol/L Carbon Dioxide (21.0-32.0) mmol/L Anion Gap (5.0-15.0) mmol/L BUN (8-26) mg/dL Creatinine (0.55-1.02) mg/dL Est Cr Clr Drug Dosing Estimated GFR (MDRD) (>60) MLS/MIN BUN/Creatinine Ratio (6-25) Glucose (74-100) mg/dL Lactic Acid 1.5 (0.4-2.0) mmol/L Calcium (8.5-10.1) mg/dL Magnesium 1.2 L (1.8-2.4) mg/dL Total Bilirubin (0.0-1.0) mg/dL AST (15-37) U/L ALT (12-78) U/L Alkaline Phosphatase (46-116) U/L Troponin I (0.000-0.060) ng/mL Total Protein (6.4-8.2) g/dL Albumin (3.4-5.0) g/dL Globulin (2.2-4.2) g/dL Albumin/Globulin Ratio (0.8-2.0) SARS-CoV-2 RNA (SCOTT) Positive H (NEGATIVE) 06/14/21 Range/Units 15:25 WBC (4.0-11.0) K/uL RBC (3.80-5.80) M/uL Hgb (11.5-16.5) g/dL Hct (37.0-47.0) % MCV (76-96) fL MCH (27.0-32.0) pg MCHC (31.0-35.0) g/dL RDW (11.0-16.0) % Plt Count (150-500) K/uL MPV (6.0-10.0) fL Neut % (Auto) (45.0-70.0) % Lymph % (Auto) (20.0-40.0) % Harvey % (Auto) (3.0-10.0) % Eos % (Auto) (1.0-5.0) % Baso % (Auto) (0.0-0.5) % Neut # (Auto) (2.00-7.50) K/uL Lymph # (Auto) (1.50-4.00) K/uL Harvey # (Auto) (0.20-0.80) K/uL Eos # (Auto) (0.04-0.40) K/uL Baso # (Auto) (0.02-0.10) K/uL PT 13.0 H (9.0-11.5) sec INR 1.3 (1.0-3.5) D-Dimer, Quantitative (0-400) ng/mL Sodium (136-145) mmol/L Potassium (3.5-5.1) mmol/L Chloride (98-107) mmol/L Carbon Dioxide (21.0-32.0) mmol/L Anion Gap (5.0-15.0) mmol/L BUN (8-26) mg/dL Creatinine (0.55-1.02) mg/dL Est Cr Clr Drug Dosing Estimated GFR (MDRD) (>60) MLS/MIN BUN/Creatinine Ratio (6-25) Glucose (74-100) mg/dL Lactic Acid (0.4-2.0) mmol/L Calcium (8.5-10.1) mg/dL Magnesium (1.8-2.4) mg/dL Total Bilirubin (0.0-1.0) mg/dL AST (15-37) U/L ALT (12-78) U/L Alkaline Phosphatase (46-116) U/L Troponin I (0.000-0.060) ng/mL Total Protein (6.4-8.2) g/dL Albumin (3.4-5.0) g/dL Globulin (2.2-4.2) g/dL Albumin/Globulin Ratio (0.8-2.0) SARS-CoV-2 RNA (SCOTT) (NEGATIVE) Med Orders - Current: Current Medications Albuterol/Ipratropium (Albuterol/Ipratropium 3.0-0.5 Mg/3 Ml Neb Soln) 3 ml NEB Q2H PRN PRN Reason: Cough Last Admin: 06/14/21 14:18 Dose: 3 ml Documented by: Azithromycin (Azithromycin 250 Mg Tab) 500 mg PO DAILY FAVIAN Ceftriaxone Sodium 1 gm/ (Sodium Chloride) 50 mls @ 100 mls/hr IV Q24H FAVIAN Potassium Chloride 10 meq/ (Premix) 50 mls @ 50 mls/hr IV ONETIME FAVIAN Stop: 06/17/21 17:59 Sodium Chloride (Sodium Chloride 0.9% 10 Ml Syringe) 10 ml FLUSH ASDIRECTED PRN PRN Reason: Keep Vein Open Discontinued Medications Azithromycin (Azithromycin 500 Mg Tab) Confirm Administered Dose 500 mg .ROUTE .STK-MED ONE Stop: 06/14/21 15:36 Sodium Chloride (Normal Saline) 500 mls @ 500 mls/hr IV .BOLUS ONE Stop: 06/14/21 15:04 Last Admin: 06/14/21 14:40 Dose: 500 mls/hr Documented by: Potassium Chloride (Kcl In Water 10 Meq/50 Ml) Confirm Administered Dose 200 mls @ as directed .ROUTE .STK-MED ONE Stop: 06/14/21 15:37 Lorazepam (Lorazepam 2 Mg/Ml Sdv) 0.5 mg IV ONETIME ONE Stop: 06/14/21 16:04 - Patient Data Lab Results Last 24 hrs: Laboratory Results - last 24 hr 06/14/21 06/14/21 06/14/21 Range/Units 02:18 02:18 02:18 WBC 14.5 H D (4.0-11.0) K/uL RBC 3.86 (3.80-5.80) M/uL Hgb 9.9 L (11.5-16.5) g/dL Hct 29.0 L (37.0-47.0) % MCV 75 L (76-96) fL MCH 25.6 L (27.0-32.0) pg MCHC 34.1 (31.0-35.0) g/dL RDW 16.1 H (11.0-16.0) % Plt Count 645 H* D (150-500) K/uL MPV 10.1 H (6.0-10.0) fL Neut % (Auto) 84.6 H (45.0-70.0) % Lymph % (Auto) 7.5 L (20.0-40.0) % Harvey % (Auto) 7.7 (3.0-10.0) % Eos % (Auto) 0.1 L (1.0-5.0) % Baso % (Auto) 0.1 (0.0-0.5) % Neut # (Auto) 12.27 H (2.00-7.50) K/uL Lymph # (Auto) 1.09 L (1.50-4.00) K/uL Harvey # (Auto) 1.12 H (0.20-0.80) K/uL Eos # (Auto) 0.02 L (0.04-0.40) K/uL Baso # (Auto) 0.02 (0.02-0.10) K/uL PT (9.0-11.5) sec INR (1.0-3.5) D-Dimer, Quantitative 2080 H (0-400) ng/mL Sodium 128 L (136-145) mmol/L Potassium 2.6 L* D (3.5-5.1) mmol/L Chloride 94 L (98-107) mmol/L Carbon Dioxide 18.2 L (21.0-32.0) mmol/L Anion Gap 18.4 H (5.0-15.0) mmol/L BUN 76 H* D (8-26) mg/dL Creatinine 1.82 H D (0.55-1.02) mg/dL Est Cr Clr Drug Dosing TNP Estimated GFR (MDRD) 26 L (>60) MLS/MIN BUN/Creatinine Ratio 41.8 H (6-25) Glucose 138 H D (74-100) mg/dL Lactic Acid (0.4-2.0) mmol/L Calcium 7.8 L (8.5-10.1) mg/dL Magnesium (1.8-2.4) mg/dL Total Bilirubin 0.5 D (0.0-1.0) mg/dL AST 63 H (15-37) U/L ALT 79 H (12-78) U/L Alkaline Phosphatase 160 H (46-116) U/L Troponin I 0.017 (0.000-0.060) ng/mL Total Protein 8.6 H (6.4-8.2) g/dL Albumin 2.7 L (3.4-5.0) g/dL Globulin 5.9 H (2.2-4.2) g/dL Albumin/Globulin Ratio 0.5 L (0.8-2.0) SARS-CoV-2 RNA (SCOTT) (NEGATIVE) 06/14/21 06/14/21 06/14/21 Range/Units 13:42 14:15 14:18 WBC (4.0-11.0) K/uL RBC (3.80-5.80) M/uL Hgb (11.5-16.5) g/dL Hct (37.0-47.0) % MCV (76-96) fL MCH (27.0-32.0) pg MCHC (31.0-35.0) g/dL RDW (11.0-16.0) % Plt Count (150-500) K/uL MPV (6.0-10.0) fL Neut % (Auto) (45.0-70.0) % Lymph % (Auto) (20.0-40.0) % Harvey % (Auto) (3.0-10.0) % Eos % (Auto) (1.0-5.0) % Baso % (Auto) (0.0-0.5) % Neut # (Auto) (2.00-7.50) K/uL Lymph # (Auto) (1.50-4.00) K/uL Harvey # (Auto) (0.20-0.80) K/uL Eos # (Auto) (0.04-0.40) K/uL Baso # (Auto) (0.02-0.10) K/uL PT (9.0-11.5) sec INR (1.0-3.5) D-Dimer, Quantitative (0-400) ng/mL Sodium (136-145) mmol/L Potassium (3.5-5.1) mmol/L Chloride (98-107) mmol/L Carbon Dioxide (21.0-32.0) mmol/L Anion Gap (5.0-15.0) mmol/L BUN (8-26) mg/dL Creatinine (0.55-1.02) mg/dL Est Cr Clr Drug Dosing Estimated GFR (MDRD) (>60) MLS/MIN BUN/Creatinine Ratio (6-25) Glucose (74-100) mg/dL Lactic Acid 1.5 (0.4-2.0) mmol/L Calcium (8.5-10.1) mg/dL Magnesium 1.2 L (1.8-2.4) mg/dL Total Bilirubin (0.0-1.0) mg/dL AST (15-37) U/L ALT (12-78) U/L Alkaline Phosphatase (46-116) U/L Troponin I (0.000-0.060) ng/mL Total Protein (6.4-8.2) g/dL Albumin (3.4-5.0) g/dL Globulin (2.2-4.2) g/dL Albumin/Globulin Ratio (0.8-2.0) SARS-CoV-2 RNA (SCOTT) Positive H (NEGATIVE) 06/14/21 Range/Units 15:25 WBC (4.0-11.0) K/uL RBC (3.80-5.80) M/uL Hgb (11.5-16.5) g/dL Hct (37.0-47.0) % MCV (76-96) fL MCH (27.0-32.0) pg MCHC (31.0-35.0) g/dL RDW (11.0-16.0) % Plt Count (150-500) K/uL MPV (6.0-10.0) fL Neut % (Auto) (45.0-70.0) % Lymph % (Auto) (20.0-40.0) % Harvey % (Auto) (3.0-10.0) % Eos % (Auto) (1.0-5.0) % Baso % (Auto) (0.0-0.5) % Neut # (Auto) (2.00-7.50) K/uL Lymph # (Auto) (1.50-4.00) K/uL Harvey # (Auto) (0.20-0.80) K/uL Eos # (Auto) (0.04-0.40) K/uL Baso # (Auto) (0.02-0.10) K/uL PT 13.0 H (9.0-11.5) sec INR 1.3 (1.0-3.5) D-Dimer, Quantitative (0-400) ng/mL Sodium (136-145) mmol/L Potassium (3.5-5.1) mmol/L Chloride (98-107) mmol/L Carbon Dioxide (21.0-32.0) mmol/L Anion Gap (5.0-15.0) mmol/L BUN (8-26) mg/dL Creatinine (0.55-1.02) mg/dL Est Cr Clr Drug Dosing Estimated GFR (MDRD) (>60) MLS/MIN BUN/Creatinine Ratio (6-25) Glucose (74-100) mg/dL Lactic Acid (0.4-2.0) mmol/L Calcium (8.5-10.1) mg/dL Magnesium (1.8-2.4) mg/dL Total Bilirubin (0.0-1.0) mg/dL AST (15-37) U/L ALT (12-78) U/L Alkaline Phosphatase (46-116) U/L Troponin I (0.000-0.060) ng/mL Total Protein (6.4-8.2) g/dL Albumin (3.4-5.0) g/dL Globulin (2.2-4.2) g/dL Albumin/Globulin Ratio (0.8-2.0) SARS-CoV-2 RNA (SCOTT) (NEGATIVE) Result Diagrams: 06/14/21 02:18 06/14/21 02:18 Sepsis Event Note - Focused Exam Vital Signs: Vital Signs Temp Pulse Resp BP Pulse Ox 06/14/21 17:00 36.0 C L 74 16 122/52 L 100 06/14/21 13:48 36.3 C 87 18 109/51 L 98 - Problem List & Annotations (1) COVID-19 SNOMED Code(s): 469047003 Code(s): U07.1 - COVID-19 Status: Acute Current Visit: Yes (2) Hypokalemia due to excessive gastrointestinal loss of potassium SNOMED Code(s): 21064030 Code(s): E87.6 - HYPOKALEMIA Status: Acute Current Visit: Yes - Problem List Review Problem List Initiated/Reviewed/Updated: Yes - Plan Plan:: [facility] Hospitalist CONSULTATION NOTE: [facility] was contacted by Ye Davila NP with request of consultation for medical management. HPI and Hospital course: Patient is an 85-year-old female with pmh of a flutter/A. fib on Coumadin, CKD 3 who presented to the ED with complaints of cough, diarrhea, feeling unwell since June 01. Per report, she has been having 3-4 episodes of diarrhea lately. Labs significant for WBC count of 14.5 with left shift, hemoglobin 9.9 (baseline) platelet count of 645 (around 295 at baseline), INR 1.3, D-dimer 20 80, sodium 128, potassium 2.6, bicarb 18, BUN 76, creatinine 1.8 (baseline around 1.4), lactic 1.5, magnesium 1.2, SARS-CoV-2 RNA positive. Chest x-ray with some right lower lobe and right middle lobe infiltrates. Pertinent Medical History: A. fib on Coumadin, CKD 3 Patient not evaluated via camera: Delete that Vitals reviewed: Last vitals BP 122/52, heart rate 74, respiratory rate 16, temp 36.3, sats 98% on room air. Labs reviewed: See above Recommendations: Based on chart review, information gathered from discussion with local provider, review of labs and imaging as noted above, I recommend the following: Patient is an 85-year-old female with history of A. fib on Coumadin, CKD 3 who presented to the ED with feeling unwell since 06/02/2021. #COVID-19 Onset of symptoms 06/02; Diagnosed on 06/14. Symptoms include malaise, cough, diarrhea. -Agree with Rocephin and azithromycin to cover for possible bacterial pneumonia given her leukocytosis with left shift, RML and RLL infiltrates on chest x-ray -Patient currently is not a candidate for monoclonal antibodies-out of window -Patient does not qualify for dexamethasone, or remdesivir due to lack of hypoxia -Recommend monitoring for symptoms, using as needed Tylenol for fevers or pain -Monitor pulse ox, goal sats greater than 94%. #A. fib on Coumadin #subtherapeutic INR -INR is subtherapeutic, recommend Lovenox 1 mg/kg twice daily until INR therapeutic. Request/appreciate pharmacy help with dosing warfarin. #Mild JODIE on CKD, likely prerenal #Hypokalemia, hypomagnesemia -Gentle IV fluids as ordered with IV potassium (10 mEq/hour X 4 hours) -Recommend additional 40 mg equivalents p.o. potassium -Give 4 mg IV magnesium over the next 4 hours. Recheck mag in a.m. -Avoid nephrotoxic medications, follow-up repeat BMP tomorrow #Elevated D-dimer D-dimer 2079 (cutoff 400). Likely secondary to COVID-19. Given her lack of hypoxia and tachycardia in the setting of CKD, will hold off on CTA chest. -Recommend resuming/continuing warfarin and using Lovenox therapeutic dose while INR is coming up. Discussed above plan with local provider. Thank you for including [facility] Howell Hospitalist in the patients care. This service is available for further assistance as requested by your care team by calling [phone].
[2021-06-14] MEDS ORDERED: Enoxaparin 60 MG/0.6 ML Syringe SUBCUT SCH (18:15)
[2021-06-14] MEDS ORDERED: Magnesium Sulfate/D5W 1 GM/100 ML BAG IV ONE ×2 (18:45→21:00)
[2021-06-14] MEDS ORDERED: Loperamide 2 MG Cap PO PRN (20:49)
[2021-06-14] MEDS ORDERED: Magnesium Sulfate/D5W 1 GM/100 ML Premix Bag IV ONE (21:00)
[2021-06-15] MEDS ORDERED: Potassium Chloride 20 MEQ Tab.ER ONE ×2 (01:12→11:51)
[2021-06-15] MEDS: Magnesium Sulfate/D5W 1 GM/100 ML Premix Bag IV SCH ×3 (03:50→04:55)
[2021-06-15] MEDS: Azithromycin 250 MG Tab PO SCH (07:58)
[2021-06-15 08:01] VITALS: BP 111/55
[2021-06-15] MEDS ORDERED: Omeprazole 20 MG Cap.CR**OWN MED PO SCH (09:30)
[2021-06-15] MEDS ORDERED: Aspirin 81 MG Tab.Chew PO SCH (09:30)
[2021-06-15] MEDS ORDERED: [UNRECOGNIZED DRUG - OTHER] PO SCH ×2 (09:30→11:03)
[2021-06-15] MEDS ORDERED: Atenolol 50 MG Tab**OWN MED PO SCH (09:30)
[2021-06-15] MEDS ORDERED: amLODIPine 5 MG Tab**OWN MED PO SCH (09:30)
[2021-06-15] MEDS ORDERED: Sertraline 50 MG Tab**OWN MED PO SCH (09:30)
[2021-06-15] MEDS ORDERED: HYDROCHLOROTHIAZIDE 25 MG PO SCH (09:30)
[2021-06-15] MEDS ORDERED: Sodium Chloride 0.9% 500 ML IV ONE ×2 (09:39→11:04)
[2021-06-15] MEDS: Albuterol/Ipratropium 3.0-0.5 MG/3 ML Neb Soln NEB PRN (10:12)
[2021-06-15] MEDS ORDERED: Sodium Chloride 0.9% 1,000 ML IV SCH (10:30)
--- NOTE | 2021-06-15 10:37 | CR ---
CLINICAL DATA: Cough. AP CHEST, 14 JUNE 2021: Comparison is made to a prior exam dated 09 February 2018. The heart size is normal. There are densities in both lung bases, consistent with basilar atelectasis or infiltrate. Pneumonia should be considered. The lungs are otherwise clear. No pneumothorax. No pleural effusions. Job: [id number] MTDD
--- NOTE | 2021-06-15 10:54 | PCM.DCSUM1 ---
Discharge Summary - Hospital Course Free Text/Narrative:: 85-year-old female presented to the ED after 12 days of illness with cough and diarrhea with decreased oral intake. Patient subsequently tested positive for COVID-19. She was outside the window for treatment with remdesivir for monoclonal antibodies. Patient was rehydrated to address dehydration and kidney function. Patient's magnesium and potassium were addressed. Patient has no respiratory distress lung sounds are clear bilateral. Patient has social network in place. Patient's hospital course was unremarkable patient responded appropriately to all interventions patient is in no distress, is able to accomplish ADLs. Brief History: COVID-19 positive with no respiratory symptoms except cough. Dehydration secondary to GI losses diarrhea x4 to 6 days with approximately 3-4 bowel movements per day. Hypokalemia hypomagnesia also secondary to GI losses Diagnosis: Stroke: No - Discharge Data Discharge Date: 06/15/21 Discharge Disposition: Home, Self-Care 01 Condition: Good - Referral to Home Health Primary Care Physician: PCP None - Discharge Diagnosis/Problem(s) (1) COVID-19 SNOMED Code(s): 154551656 ICD Code: U07.1 - COVID-19 Status: Acute Current Visit: Yes (2) Dehydration SNOMED Code(s): 48071988 ICD Code: E86.0 - DEHYDRATION Status: Acute Current Visit: Yes (3) Hypokalemia due to excessive gastrointestinal loss of potassium SNOMED Code(s): 23904379 ICD Code: E87.6 - HYPOKALEMIA Status: Acute Current Visit: Yes - Patient Summary/Data Consults: Dr Sp Boyd- inital ED consult Dr. Song- telehospitalist Dr. Paulino- regarding discharge - Patient Instructions Diet: Regular Diet as Tolerated Activity: As Tolerated Notify Provider of: Fever, Increased Pain, Swelling and Redness, Nausea and/or Vomiting - Discharge Plan *PRESCRIPTION DRUG MONITORING PROGRAM REVIEWED*: No *COPY OF PRESCRIPTION DRUG MONITORING REPORT IN PATIENT KRISTOPHER: No Home Medications: Home Meds Omeprazole [Prilosec] 20 mg PO DAILY 10/19/14 [History] Pravastatin [Pravachol] 40 mg PO BEDTIME 10/19/14 [History] Sertraline HCl 75 mg PO DAILY 10/19/14 [History] amLODIPine Besylate [Amlodipine Besylate] 5 mg PO DAILY 10/19/14 [History] atenoloL [Tenormin] 50 mg PO DAILY 10/19/14 [History] Hydrochlorothiazide 25 mg PO DAILY 04/08/16 [History] Apixaban [Eliquis] 5 mg PO BID 06/14/21 [History] Aspirin 81 mg PO DAILY 06/14/21 [History] SitaGLIPtin [Januvia] 100 mg PO DAILY 06/14/21 [History] Potassium Chloride [Klor-Con M20] 20 meq PO DAILY #30 tab.er 06/15/21 [Rx] Forms: ED Department Discharge Referrals: PCP,Unknown [Ordering Only Provider] - - Discharge Summary/Plan Comment DC Time >30 min.: No Total # of Minutes for Discharge Time: 25 Discharge Summary/Plan Comment: 1. [id number] until June 27, return to ED shortness of breath develops, or patient becomes increasingly ill. 2. Dehydration/diarrhearemain hydrated considered drinking Pedialyte for duration of illness, if increased weakness or fatigue return to ED. 3. Hypokalemia/hypomagnesia consider taking multivitamin to address dietary deficiencies and GI losses to diarrhea. Take-home prescription for potassium 20 mEq once daily. Follow-up with primary care provider after quarantine period. - Patient Data Vitals - Most Recent: Last Vital Signs Temp 97 F 06/15/21 08:00 Pulse 75 06/15/21 08:00 Resp 16 06/15/21 08:00 BP 111/55 L 06/15/21 08:00 Pulse Ox 97 06/15/21 08:00 Weight - Most Recent: 132 lb I&O - Last 24 hours: Intake & Output 06/14/21 06/15/21 06/15/21 22:59 06:59 14:59 Intake Total 900 Output Total 350 Balance 550 Lab Results - Last 24 hrs: Laboratory Results - last 24 hr 06/14/21 06/14/21 06/14/21 Range/Units 02:18 02:18 02:18 WBC 14.5 H D (4.0-11.0) K/uL RBC 3.86 (3.80-5.80) M/uL Hgb 9.9 L (11.5-16.5) g/dL Hct 29.0 L (37.0-47.0) % MCV 75 L (76-96) fL MCH 25.6 L (27.0-32.0) pg MCHC 34.1 (31.0-35.0) g/dL RDW 16.1 H (11.0-16.0) % Plt Count 645 H* D (150-500) K/uL MPV 10.1 H (6.0-10.0) fL Neut % (Auto) 84.6 H (45.0-70.0) % Lymph % (Auto) 7.5 L (20.0-40.0) % Gaston % (Auto) 7.7 (3.0-10.0) % Eos % (Auto) 0.1 L (1.0-5.0) % Baso % (Auto) 0.1 (0.0-0.5) % Neut # (Auto) 12.27 H (2.00-7.50) K/uL Lymph # (Auto) 1.09 L (1.50-4.00) K/uL Gaston # (Auto) 1.12 H (0.20-0.80) K/uL Eos # (Auto) 0.02 L (0.04-0.40) K/uL Baso # (Auto) 0.02 (0.02-0.10) K/uL PT (9.0-11.5) sec INR (1.0-3.5) D-Dimer, Quantitative 2080 H (0-400) ng/mL Sodium 128 L (136-145) mmol/L Potassium 2.6 L* D (3.5-5.1) mmol/L Chloride 94 L (98-107) mmol/L Carbon Dioxide 18.2 L (21.0-32.0) mmol/L Anion Gap 18.4 H (5.0-15.0) mmol/L BUN 76 H* D (8-26) mg/dL Creatinine 1.82 H D (0.55-1.02) mg/dL Est Cr Clr Drug Dosing TNP Estimated GFR (MDRD) 26 L (>60) MLS/MIN BUN/Creatinine Ratio 41.8 H (6-25) Glucose 138 H D (74-100) mg/dL Lactic Acid (0.4-2.0) mmol/L Calcium 7.8 L (8.5-10.1) mg/dL Magnesium (1.8-2.4) mg/dL Total Bilirubin 0.5 D (0.0-1.0) mg/dL AST 63 H (15-37) U/L ALT 79 H (12-78) U/L Alkaline Phosphatase 160 H (46-116) U/L Troponin I 0.017 (0.000-0.060) ng/mL Total Protein 8.6 H (6.4-8.2) g/dL Albumin 2.7 L (3.4-5.0) g/dL Globulin 5.9 H (2.2-4.2) g/dL Albumin/Globulin Ratio 0.5 L (0.8-2.0) SARS-CoV-2 RNA (SCOTT) (NEGATIVE) 06/14/21 06/14/21 06/14/21 Range/Units 13:42 14:15 14:18 WBC (4.0-11.0) K/uL RBC (3.80-5.80) M/uL Hgb (11.5-16.5) g/dL Hct (37.0-47.0) % MCV (76-96) fL MCH (27.0-32.0) pg MCHC (31.0-35.0) g/dL RDW (11.0-16.0) % Plt Count (150-500) K/uL MPV (6.0-10.0) fL Neut % (Auto) (45.0-70.0) % Lymph % (Auto) (20.0-40.0) % Gaston % (Auto) (3.0-10.0) % Eos % (Auto) (1.0-5.0) % Baso % (Auto) (0.0-0.5) % Neut # (Auto) (2.00-7.50) K/uL Lymph # (Auto) (1.50-4.00) K/uL Gaston # (Auto) (0.20-0.80) K/uL Eos # (Auto) (0.04-0.40) K/uL Baso # (Auto) (0.02-0.10) K/uL PT (9.0-11.5) sec INR (1.0-3.5) D-Dimer, Quantitative (0-400) ng/mL Sodium (136-145) mmol/L Potassium (3.5-5.1) mmol/L Chloride (98-107) mmol/L Carbon Dioxide (21.0-32.0) mmol/L Anion Gap (5.0-15.0) mmol/L BUN (8-26) mg/dL Creatinine (0.55-1.02) mg/dL Est Cr Clr Drug Dosing Estimated GFR (MDRD) (>60) MLS/MIN BUN/Creatinine Ratio (6-25) Glucose (74-100) mg/dL Lactic Acid 1.5 (0.4-2.0) mmol/L Calcium (8.5-10.1) mg/dL Magnesium 1.2 L (1.8-2.4) mg/dL Total Bilirubin (0.0-1.0) mg/dL AST (15-37) U/L ALT (12-78) U/L Alkaline Phosphatase (46-116) U/L Troponin I (0.000-0.060) ng/mL Total Protein (6.4-8.2) g/dL Albumin (3.4-5.0) g/dL Globulin (2.2-4.2) g/dL Albumin/Globulin Ratio (0.8-2.0) SARS-CoV-2 RNA (SCOTT) Positive H (NEGATIVE) 06/14/21 06/15/21 06/15/21 Range/Units 15:25 08:00 08:30 WBC (4.0-11.0) K/uL RBC (3.80-5.80) M/uL Hgb (11.5-16.5) g/dL Hct (37.0-47.0) % MCV (76-96) fL MCH (27.0-32.0) pg MCHC (31.0-35.0) g/dL RDW (11.0-16.0) % Plt Count (150-500) K/uL MPV (6.0-10.0) fL Neut % (Auto) (45.0-70.0) % Lymph % (Auto) (20.0-40.0) % Gaston % (Auto) (3.0-10.0) % Eos % (Auto) (1.0-5.0) % Baso % (Auto) (0.0-0.5) % Neut # (Auto) (2.00-7.50) K/uL Lymph # (Auto) (1.50-4.00) K/uL Gaston # (Auto) (0.20-0.80) K/uL Eos # (Auto) (0.04-0.40) K/uL Baso # (Auto) (0.02-0.10) K/uL PT 13.0 H 11.3 (9.0-11.5) sec INR 1.3 1.1 (1.0-3.5) D-Dimer, Quantitative (0-400) ng/mL Sodium 131 L (136-145) mmol/L Potassium 3.2 L D (3.5-5.1) mmol/L Chloride 100 (98-107) mmol/L Carbon Dioxide 19.8 L (21.0-32.0) mmol/L Anion Gap 14.4 (5.0-15.0) mmol/L BUN 62 H* (8-26) mg/dL Creatinine 1.47 H (0.55-1.02) mg/dL Est Cr Clr Drug Dosing 23.57 Estimated GFR (MDRD) 34 L (>60) MLS/MIN BUN/Creatinine Ratio 42.2 H (6-25) Glucose 128 H (74-100) mg/dL Lactic Acid (0.4-2.0) mmol/L Calcium 7.9 L (8.5-10.1) mg/dL Magnesium (1.8-2.4) mg/dL Total Bilirubin (0.0-1.0) mg/dL AST (15-37) U/L ALT (12-78) U/L Alkaline Phosphatase (46-116) U/L Troponin I (0.000-0.060) ng/mL Total Protein (6.4-8.2) g/dL Albumin (3.4-5.0) g/dL Globulin (2.2-4.2) g/dL Albumin/Globulin Ratio (0.8-2.0) SARS-CoV-2 RNA (SCOTT) (NEGATIVE) 06/15/21 Range/Units 08:30 WBC (4.0-11.0) K/uL RBC (3.80-5.80) M/uL Hgb (11.5-16.5) g/dL Hct (37.0-47.0) % MCV (76-96) fL MCH (27.0-32.0) pg MCHC (31.0-35.0) g/dL RDW (11.0-16.0) % Plt Count (150-500) K/uL MPV (6.0-10.0) fL Neut % (Auto) (45.0-70.0) % Lymph % (Auto) (20.0-40.0) % Gaston % (Auto) (3.0-10.0) % Eos % (Auto) (1.0-5.0) % Baso % (Auto) (0.0-0.5) % Neut # (Auto) (2.00-7.50) K/uL Lymph # (Auto) (1.50-4.00) K/uL Gaston # (Auto) (0.20-0.80) K/uL Eos # (Auto) (0.04-0.40) K/uL Baso # (Auto) (0.02-0.10) K/uL PT (9.0-11.5) sec INR (1.0-3.5) D-Dimer, Quantitative (0-400) ng/mL Sodium (136-145) mmol/L Potassium (3.5-5.1) mmol/L Chloride (98-107) mmol/L Carbon Dioxide (21.0-32.0) mmol/L Anion Gap (5.0-15.0) mmol/L BUN (8-26) mg/dL Creatinine (0.55-1.02) mg/dL Est Cr Clr Drug Dosing Estimated GFR (MDRD) (>60) MLS/MIN BUN/Creatinine Ratio (6-25) Glucose (74-100) mg/dL Lactic Acid (0.4-2.0) mmol/L Calcium (8.5-10.1) mg/dL Magnesium 3.1 H* D (1.8-2.4) mg/dL Total Bilirubin (0.0-1.0) mg/dL AST (15-37) U/L ALT (12-78) U/L Alkaline Phosphatase (46-116) U/L Troponin I (0.000-0.060) ng/mL Total Protein (6.4-8.2) g/dL Albumin (3.4-5.0) g/dL Globulin (2.2-4.2) g/dL Albumin/Globulin Ratio (0.8-2.0) SARS-CoV-2 RNA (SCOTT) (NEGATIVE) Med Orders - Current: Current Medications Albuterol/Ipratropium (Albuterol/Ipratropium 3.0-0.5 Mg/3 Ml Neb Soln) 3 ml NEB Q2H PRN PRN Reason: Cough Last Admin: 06/15/21 10:12 Dose: 3 ml Documented by: Amlodipine Besylate (Amlodipine 5 Mg Tab) 5 mg PO DAILY FAVIAN Aspirin (Aspirin 81 Mg Tab.Chew) 81 mg PO DAILY FAVIAN Atenolol (Atenolol 50 Mg Tab) 50 mg PO DAILY FAVIAN Azithromycin (Azithromycin 250 Mg Tab) 500 mg PO DAILY FAVIAN Last Admin: 06/15/21 07:58 Dose: 500 mg Documented by: Enoxaparin Sodium (Enoxaparin 60 Mg/0.6 Ml Syringe) 60 mg SUBCUT BEDTIME FAVIAN Hydrochlorothiazide (Hydrochlorothiazide 25 Mg Tab) 25 mg PO DAILY [facility] Ceftriaxone Sodium 1 gm/ (Sodium Chloride) 50 mls @ 100 mls/hr IV Q24H FAVIAN Last Admin: 06/14/21 16:00 Dose: 100 mls/hr Documented by: Sodium Chloride (Normal Saline) 1,000 mls @ 75 mls/hr IV ASDIRECTED FAVIAN Loperamide HCl (Loperamide 2 Mg Cap) 2 mg PO Q4H PRN PRN Reason: diarrhea Last Admin: 06/14/21 21:20 Dose: 2 mg Documented by: Omeprazole (Omeprazole 20 Mg Cap.Cr) 20 mg PO DAILY [facility] Pravastatin Sodium (Pravastatin 40 Mg Tab) 40 mg PO BEDTIME FAVIAN Sertraline HCl (Sertraline 50 Mg Tab) 75 mg PO DAILY [facility] Sitagliptin Phosphate (Sitagliptin 25 Mg Tab) 100 mg PO DAILY [facility] Sodium Chloride (Sodium Chloride 0.9% 10 Ml Syringe) 10 ml FLUSH ASDIRECTED PRN PRN Reason: Keep Vein Open Discontinued Medications Azithromycin (Azithromycin 500 Mg Tab) Confirm Administered Dose 500 mg .ROUTE .STK-MED ONE Stop: 06/14/21 15:36 Last Admin: 06/14/21 18:24 Dose: Not Given Documented by: Enoxaparin Sodium (Enoxaparin 60 Mg/0.6 Ml Syringe) 50 mg SUBCUT Q12H [facility] Last Admin: 06/14/21 19:51 Dose: 50 mg Documented by: Sodium Chloride (Normal Saline) 500 mls @ 500 mls/hr IV .BOLUS ONE Stop: 06/14/21 15:04 Last Admin: 06/14/21 14:40 Dose: 500 mls/hr Documented by: Potassium Chloride (Kcl In Water 10 Meq/50 Ml) Confirm Administered Dose 200 mls @ as directed .ROUTE .STK-MED ONE Stop: 06/14/21 15:37 Last Admin: 06/14/21 18:23 Dose: Not Given Documented by: Potassium Chloride 10 meq/ (Premix) 50 mls @ 50 mls/hr IV ONETIME FAVIAN Stop: 06/17/21 17:59 Last Infusion: 06/15/21 03:12 Dose: Infused Documented by: Magnesium Sulfate/Dextrose (Magnesium Sulfate In D5w 1 Gm/100 Ml) 1 gm in 100 mls @ 100 mls/hr IV ONETIME ONE Stop: 06/14/21 19:44 Magnesium Sulfate/Dextrose (Magnesium Sulfate In D5w 1 Gm/100 Ml) 1 gm in 100 mls @ 100 mls/hr IV ONETIME ONE Stop: 06/14/21 21:59 Last Infusion: 06/15/21 03:50 Dose: 0 mls/hr Documented by: Sodium Chloride (Normal Saline) 500 mls @ 999 mls/hr IV .BOLUS ONE Stop: 06/15/21 10:09 Last Admin: 06/15/21 10:27 Dose: 999 mls/hr Documented by: Lorazepam (Lorazepam 2 Mg/Ml Sdv) 0.5 mg IV ONETIME ONE Stop: 06/14/21 16:04 Last Admin: 06/14/21 17:34 Dose: 0.5 mg Documented by: Magnesium Sulfate/Dextrose (Magnesium Sulfate/D5w 1 Gm/100 Ml Premix Bag) 1 gm IV ASDIRECTED ONE Stop: 06/14/21 21:01 Magnesium Sulfate/Dextrose (Magnesium Sulfate/D5w 1 Gm/100 Ml Premix Bag) 1 gm IV TID FAVIAN Stop: 06/15/21 14:01 Last Admin: 06/15/21 04:55 Dose: 1 gm Documented by: Potassium Chloride (Potassium Chloride 20 Meq Tab.Er) 40 meq PO ONETIME ONE Stop: 06/17/21 18:00 Last Admin: 06/15/21 03:11 Dose: 40 meq Documented by: Potassium Chloride (Potassium Chloride 20 Meq Tab.Er) Confirm Administered Dose 40 meq .ROUTE .STK-MED ONE Stop: 06/15/21 01:13 Last Admin: 06/15/21 03:11 Dose: Not Given Documented by:
[2021-06-15] MEDS ORDERED: Potassium Chloride 20 MEQ Tab.ER PO ONE (11:45)
[2021-06-15 13:59] VITALS: PULSE 80
[2021-06-15] MEDS ORDERED: PRAVASTATIN 40 MG PO SCH (20:00)
[2021-06-15] MEDS ORDERED: Enoxaparin 60 MG/0.6 ML Syringe SUBCUT SCH (20:00)
[2021-06-17] MEDS ORDERED: Potassium Chloride 20 MEQ Tab.ER PO ONE (17:59)
== END 2021-06-15 13:30 | disposition home or self-care (01) ==
LOC: LB.ED 12:41 → LB.MS 15:58 → UNDOADMOB 18:10 → LB.MS 18:10
PROVIDERS: ADMIT Physician Assistant; ATTEND Physician Assistant
DX: U07.1 COVID-19 (principal); E87.6 Hypokalemia; E86.0 Dehydration; E78.00 Pure hypercholesterolemia, unspecified; I10 Essential (primary) hypertension; K21.9 Gastro-esophageal reflux disease without esophagitis; Z79.01 Long term (current) use of anticoagulants; E11.9 Type 2 diabetes mellitus without complications; Z79.84 Long term (current) use of oral hypoglycemic drugs; Z88.8 Allergy status to other drugs, medicaments and biological substances; Z79.899 Other long term (current) drug therapy; Z98.890 Other specified postprocedural states; Z90.49 Acquired absence of other specified parts of digestive tract
CPT/HCPCS: 36415; 71045; 80048; 80053; 81001; 83605; 83735; 84484; 85025; 85379; 85610; 93005; A9270-GY; J0696; J1650; J2060; J3475; J3480; J7040; J7620-GY; U0002

== ENCOUNTER 2022-02-16 00:05 | Emergency (ER) | payer MEDICARE, OTHER ==
[2022-02-16] MEDS ORDERED: Cyclobenzaprine 10 MG Tab ONE (00:40)
[2022-02-16] MEDS ORDERED: Acetaminophen/Codeine 300-30 MG Tab ONE (00:40)
[2022-02-16 01:03] VITALS: BP 131/38; PULSE 55
== END 2022-02-16 00:45 | disposition home or self-care (01) ==
LOC: LB.ED 00:05
DX: S39.012A Strain of muscle, fascia and tendon of lower back, initial encounter (principal); E78.00 Pure hypercholesterolemia, unspecified; I10 Essential (primary) hypertension; E11.9 Type 2 diabetes mellitus without complications; Z88.8 Allergy status to other drugs, medicaments and biological substances; Z79.899 Other long term (current) drug therapy; Z79.01 Long term (current) use of anticoagulants; Z79.82 Long term (current) use of aspirin; Z90.49 Acquired absence of other specified parts of digestive tract; W26.8XXA Contact with other sharp object(s), not elsewhere classified, initial encounter
CPT/HCPCS: 99281; 99283; A9270

== ENCOUNTER 2022-02-19 18:14 | Emergency (ER) | payer MEDICARE, OTHER ==
[2022-02-19 18:34] VITALS: BP 124/61; PULSE 100
== END 2022-02-19 18:54 | disposition home or self-care (01) ==
LOC: LB.ED 18:14
DX: M54.50 Low back pain, unspecified (principal); E78.00 Pure hypercholesterolemia, unspecified; I10 Essential (primary) hypertension; E11.9 Type 2 diabetes mellitus without complications; K21.9 Gastro-esophageal reflux disease without esophagitis; Z86.73 Personal history of transient ischemic attack (TIA), and cerebral infarction without residual deficits; Z88.8 Allergy status to other drugs, medicaments and biological substances; Z79.01 Long term (current) use of anticoagulants; Z79.899 Other long term (current) drug therapy; Z79.82 Long term (current) use of aspirin
CPT/HCPCS: 99282; 99283

== ENCOUNTER 2024-02-28 15:55 | Inpatient (IN) | payer MEDICARE, OTHER ==
[2024-02-28] MEDS ORDERED: Sodium Chloride 0.9% 10 ML Syringe FLUSH PRN (16:14)
[2024-02-28 16:44] LABS: HEMATOCRIT 36.3 % (37.0-47.0); HEMOGLOBIN 11.8 g/dL (11.5-16.5); MEAN CORPUSCULAR HEMOGLOBIN 26.8 pg (27.0-32.0); MEAN CORPUSCULAR HGB CONC 32.5 g/dL (31.0-35.0); MEAN PLATELET VOLUME 9.9 fL (6.0-10.0); RED BLOOD CELL COUNT 4.4 M/uL (3.80-5.80); RED CELL DISTRIBUTION WIDTH 14.9 % (11.0-16.0); WHITE BLOOD CELL COUNT,WBC 8.9 K/uL (4.0-11.0)
[2024-02-28 16:57] LABS: A/G RATIO 0.8 (0.8-2.0); ALBUMIN 3.7 g/dL (3.4-5.0); ANION GAP 19.2 mmol/L (5.0-15.0); BILIRUBIN TOTAL 0.7 mg/dL (0.0-1.0); BUN/CREATININE RATIO 20.4 (6-25); CALCIUM 9.1 mg/dL (8.5-10.1); CREATININE 2.25 mg/dL (0.55-1.02); EST CRCL DRUG DOSING (CG) 13.93 mL/min; MAGNESIUM 1.1 mg/dL (1.8-2.4); POTASSIUM,K 3.2 mmol/L (3.5-5.1); PROTEIN TOTAL,TP 8.6 g/dL (6.4-8.2)
[2024-02-28 16:59] LABS: TROPONIN I HIGH SENSITIVITY 84.5 pg/ml (<=60.4)
[2024-02-28] MEDS: Sodium Chloride 0.9% 1,000 ML IV SCH (17:03)
[2024-02-28] MEDS: Potassium Chloride 20 MEQ Tab.ER PO ONE (17:47)
[2024-02-28] MEDS: Acetaminophen 325 MG Tab PO ONE (20:34)
[2024-02-28] MEDS: Acetaminophen 325 MG Tab ONE (21:18)
[2024-02-28] MEDS ORDERED: Acetaminophen 500 MG Tab PO PRN (21:57)
[2024-02-28] MEDS ORDERED: Loperamide 2 MG Cap PO PRN (22:00)
[2024-02-28] MEDS: Lactated Ringers 1,000 ML IV SCH (22:57)
[2024-02-28] MEDS: Potassium Chloride 10 MEQ Tab.ER PO SCH (22:58)
[2024-02-29] MEDS: Hydrochlorothiazide 25 MG Tab PO SCH (07:47)
[2024-02-29] MEDS: Omeprazole 20 MG Cap.CR PO SCH (07:47)
[2024-02-29] MEDS: Sertraline 50 MG Tab PO SCH (07:51)
[2024-02-29] MEDS: Atenolol 50 MG Tab PO SCH (07:51)
[2024-02-29] MEDS: Apixaban 5 MG Tab PO SCH (07:51)
[2024-02-29] MEDS: amLODIPine 5 MG Tab PO SCH (07:54)
[2024-02-29] MEDS ORDERED: SitaGLIPtin 25 MG Tab PO SCH (08:00)
[2024-02-29 08:43] LABS: ANION GAP 15.2 mmol/L (5.0-15.0); BUN/CREATININE RATIO 22.4 (6-25); CALCIUM 8.5 mg/dL (8.5-10.1); CARBON DIOXIDE,CO2 19.7 mmol/L (21.0-32.0); CREATININE 1.74 mg/dL (0.55-1.02); EST CRCL DRUG DOSING (CG) 18.01 mL/min; MAGNESIUM 1.7 mg/dL (1.8-2.4); POTASSIUM,K 3.9 mmol/L (3.5-5.1)
[2024-02-29 08:48] LABS: TROPONIN I HIGH SENSITIVITY 134.7 pg/ml (<=60.4)
[2024-02-29] MEDS ORDERED: SITAGLIPTIN 100 MG PO SCH ×3 (10:30→13:45)
[2024-02-29 12:34] VITALS: BP 133/56; PULSE 64
[2024-02-29] MEDS ORDERED: Patient's Own Medication 1 Each PO SCH (13:34)
[2024-02-29] MEDS ORDERED: Pravastatin 40 MG Tab PO SCH (20:00)
== END 2024-02-29 14:11 | disposition home or self-care (01) | DRG 641 ==
LOC: LB.ED 15:55 → LB.MS 20:43 → UNDOADMIN 20:46 → LB.MS 20:46 → UNDODISIN 02-29 14:11
PROVIDERS: ADMIT Surgery; ATTEND Surgery
DX: E86.0 Dehydration (principal); N17.9 Acute kidney failure, unspecified; S09.90XA Unspecified injury of head, initial encounter; W01.0XXA Fall on same level from slipping, tripping and stumbling without subsequent striking against object, initial encounter; I48.91 Unspecified atrial fibrillation; E78.00 Pure hypercholesterolemia, unspecified; I10 Essential (primary) hypertension; K21.9 Gastro-esophageal reflux disease without esophagitis; M19.90 Unspecified osteoarthritis, unspecified site; E11.9 Type 2 diabetes mellitus without complications; F32.A Depression, unspecified; E87.6 Hypokalemia; E83.42 Hypomagnesemia; I69.392 Facial weakness following cerebral infarction; Z79.01 Long term (current) use of anticoagulants; Z86.73 Personal history of transient ischemic attack (TIA), and cerebral infarction without residual deficits; Z88.8 Allergy status to other drugs, medicaments and biological substances; Z79.899 Other long term (current) drug therapy; Z79.84 Long term (current) use of oral hypoglycemic drugs; Z90.89 Acquired absence of other organs; Z90.49 Acquired absence of other specified parts of digestive tract
CPT/HCPCS: 36415; 70450; 80048; 80053; 83735; 84484; 85027; 93005; 96361; 96365; 96366; 99222; 99239; 99285-25; A9270-GY; J3475; J7030; J7120

== ENCOUNTER 2024-07-24 11:48 | Emergency (ER) | payer MEDICARE, OTHER ==
[2024-07-24 12:41] LABS: BASOPHILS ABSOLUTE AUTO 0.05 K/uL (0.02-0.10); BASOPHILS PERCENT AUTO 0.6 % (0.0-0.5); EOSINOPHILS ABSOLUTE AUTO 0.09 K/uL (0.04-0.40); EOSINOPHILS PERCENT AUTO 1.1 % (1.0-5.0); HEMATOCRIT 30.8 % (37.0-47.0); HEMOGLOBIN 9.9 g/dL (11.5-16.5); LYMPHOCYTES ABSOLUTE AUTO 1.26 K/uL (1.50-4.00); LYMPHOCYTES PERCENT AUTO 16.1 % (20.0-40.0); MEAN CORPUSCULAR HEMOGLOBIN 27.4 pg (27.0-32.0); MEAN CORPUSCULAR HGB CONC 32.1 g/dL (31.0-35.0); MEAN CORPUSCULAR VOLUME 85 fL (76-96); MEAN PLATELET VOLUME 10.4 fL (6.0-10.0); MONOCYTES PERCENT AUTO 8.9 % (3.0-10.0); NEUTROPHILS ABSOLUTE AUTO 5.75 K/uL (2.00-7.50); NEUTROPHILS PERCENT AUTO 73.3 % (45.0-70.0); PLATELET COUNT,PLT 203 K/uL (150-500); RED BLOOD CELL COUNT 3.61 M/uL (3.80-5.80); RED CELL DISTRIBUTION WIDTH 14.2 % (11.0-16.0); WHITE BLOOD CELL COUNT,WBC 7.9 K/uL (4.0-11.0)
[2024-07-24] MEDS ORDERED: Cephalexin 500 MG Cap ONE (13:00)
[2024-07-24 22:35] VITALS: BP 131/47; PULSE 61
== END 2024-07-24 13:30 | disposition home or self-care (01) ==
LOC: LB.ED 11:48
DX: S90.02XA Contusion of left ankle, initial encounter (principal); L03.116 Cellulitis of left lower limb; I48.91 Unspecified atrial fibrillation; I10 Essential (primary) hypertension; E78.00 Pure hypercholesterolemia, unspecified; K21.9 Gastro-esophageal reflux disease without esophagitis; Z86.73 Personal history of transient ischemic attack (TIA), and cerebral infarction without residual deficits; Z90.49 Acquired absence of other specified parts of digestive tract; Z88.8 Allergy status to other drugs, medicaments and biological substances; Z79.01 Long term (current) use of anticoagulants; Z79.899 Other long term (current) drug therapy; X58.XXXA Exposure to other specified factors, initial encounter
CPT/HCPCS: 36415; 73610; 85025; 99283; A9270

== ENCOUNTER 2024-12-13 15:30 | Emergency (ER) | payer MEDICARE, OTHER ==
[2024-12-13] MEDS ORDERED: Sodium Chloride 0.9% 10 ML Syringe FLUSH PRN (15:48)
[2024-12-13] MEDS ORDERED: Naloxone 2 MG/2 ML Syringe IVPUSH PRN (15:49)
[2024-12-13 16:02] LABS: BASOPHILS ABSOLUTE AUTO 0.03 K/uL (0.02-0.10); BASOPHILS PERCENT AUTO 0.4 % (0.0-0.5); EOSINOPHILS ABSOLUTE AUTO 0.08 K/uL (0.04-0.40); HEMATOCRIT 32.1 % (37.0-47.0); HEMOGLOBIN 10.3 g/dL (11.5-16.5); LYMPHOCYTES ABSOLUTE AUTO 1.24 K/uL (1.50-4.00); LYMPHOCYTES PERCENT AUTO 15.8 % (20.0-40.0); MEAN CORPUSCULAR HEMOGLOBIN 26.7 pg (27.0-32.0); MEAN CORPUSCULAR HGB CONC 32.1 g/dL (31.0-35.0); MEAN CORPUSCULAR VOLUME 83 fL (76-96); MEAN PLATELET VOLUME 10.4 fL (6.0-10.0); MONOCYTES ABSOLUTE AUTO 0.69 K/uL (0.20-0.80); MONOCYTES PERCENT AUTO 8.8 % (3.0-10.0); NEUTROPHILS ABSOLUTE AUTO 5.82 K/uL (2.00-7.50); PLATELET COUNT,PLT 186 K/uL (150-500); RED BLOOD CELL COUNT 3.86 M/uL (3.80-5.80); RED CELL DISTRIBUTION WIDTH 15.6 % (11.0-16.0); WHITE BLOOD CELL COUNT,WBC 7.9 K/uL (4.0-11.0)
[2024-12-13] MEDS: Ondansetron 4 MG/2 ML SDV IVPUSH ONE (16:02)
[2024-12-13] MEDS: Acetaminophen 500 MG Tab PO ONE (16:02)
[2024-12-13 16:16] LABS: ANION GAP 13.6 mmol/L (5.0-15.0); BUN/CREATININE RATIO 39.8 (6-25); CALCIUM 8.6 mg/dL (8.5-10.1); CARBON DIOXIDE,CO2 23.2 mmol/L (21.0-32.0); CHLORIDE,CL 104 mmol/L (98-107); CREATININE 1.71 mg/dL (0.55-1.02); ESTIMATED GFR 28 mL/min (>60); GLUCOSE RANDOM 122 mg/dL (74-100); POTASSIUM,K 3.8 mmol/L (3.5-5.1); SODIUM,NA 137 mmol/L (136-145)
[2024-12-13 16:18] LABS: BLOOD UREA NITROGEN,BUN 68 mg/dL (8-26)
[2024-12-13] MEDS: Morphine 2 MG/ML SYRINGE IVPUSH ONE (16:18)
[2024-12-13 18:26] VITALS: BP 152/73; PULSE 68
== END 2024-12-13 17:31 | disposition home or self-care (01) ==
LOC: LB.ED 15:30
DX: S42.031A Displaced fracture of lateral end of right clavicle, initial encounter for closed fracture (principal); S00.83XA Contusion of other part of head, initial encounter; E78.00 Pure hypercholesterolemia, unspecified; I10 Essential (primary) hypertension; K21.9 Gastro-esophageal reflux disease without esophagitis; Z90.49 Acquired absence of other specified parts of digestive tract; Z79.899 Other long term (current) drug therapy; Z88.8 Allergy status to other drugs, medicaments and biological substances; W01.0XXA Fall on same level from slipping, tripping and stumbling without subsequent striking against object, initial encounter
CPT/HCPCS: 36415; 70450; 71045; 72125; 72170; 73030-RT; 73080-RT; 80048; 85025; 96374; 96375; 99284-25; A9270-GY; J2270; J2405

== ENCOUNTER 2024-12-28 08:11 | Emergency (ER) | payer MEDICARE, OTHER ==
[2024-12-28] MEDS: traMADol 50 MG Tab PO ONE (08:47)
[2024-12-28 10:52] VITALS: BP 134/50; PULSE 64
== END 2024-12-28 10:10 | disposition home or self-care (01) ==
LOC: LB.ED 08:11
DX: S42.031A Displaced fracture of lateral end of right clavicle, initial encounter for closed fracture (principal); I48.91 Unspecified atrial fibrillation; E78.00 Pure hypercholesterolemia, unspecified; I10 Essential (primary) hypertension; Z86.73 Personal history of transient ischemic attack (TIA), and cerebral infarction without residual deficits; Z88.8 Allergy status to other drugs, medicaments and biological substances; Z79.899 Other long term (current) drug therapy; Z79.01 Long term (current) use of anticoagulants; Z90.49 Acquired absence of other specified parts of digestive tract; W18.39XA Other fall on same level, initial encounter; Y93.89 Activity, other specified
CPT/HCPCS: 73020-RT; 99283; A9270-GY

== ENCOUNTER 2025-03-28 12:54 | Emergency (ER) | payer MEDICARE, OTHER ==
[2025-03-28 13:52] LABS: BASOPHILS ABSOLUTE AUTO 0.03 K/uL (0.02-0.10); BASOPHILS PERCENT AUTO 0.3 % (0.0-0.5); EOSINOPHILS ABSOLUTE AUTO 0.09 K/uL (0.04-0.40); EOSINOPHILS PERCENT AUTO 0.8 % (1.0-5.0); LYMPHOCYTES ABSOLUTE AUTO 0.81 K/uL (1.50-4.00); LYMPHOCYTES PERCENT AUTO 7.6 % (20.0-40.0); MEAN PLATELET VOLUME 10.4 fL (6.0-10.0); MONOCYTES ABSOLUTE AUTO 0.67 K/uL (0.20-0.80); MONOCYTES PERCENT AUTO 6.3 % (3.0-10.0); NEUTROPHILS ABSOLUTE AUTO 9.05 K/uL (2.00-7.50); NEUTROPHILS PERCENT AUTO 85.0 % (45.0-70.0); PLATELET COUNT,PLT 218 K/uL (150-500); RED BLOOD CELL COUNT 3.17 M/uL (3.80-5.80); RED CELL DISTRIBUTION WIDTH 15.0 % (11.0-16.0); WHITE BLOOD CELL COUNT,WBC 10.7 K/uL (4.0-11.0)
[2025-03-28 14:06] LABS: CARBON DIOXIDE,CO2 21.2 mmol/L (21.0-32.0); CHLORIDE,CL 104.0 mmol/L (98-107); CREATININE 1.86 mg/dL (0.55-1.02); EST CRCL DRUG DOSING (CG) 16.54 mL/min; ESTIMATED GFR 26.0 mL/min (>60); GLUCOSE RANDOM 126.0 mg/dL (74-100); SODIUM,NA 138.0 mmol/L (136-145)
[2025-03-28 14:12] LABS: BLOOD UREA NITROGEN,BUN 60.0 mg/dL (8-26); POTASSIUM,K 2.9 mmol/L (3.5-5.1)
[2025-03-28] MEDS: Potassium Chloride 20 MEQ Tab.ER PO ONE (14:19)
[2025-03-28] MEDS: Ondansetron 4 MG/2 ML SDV IVPUSH ONE (15:34)
[2025-03-28 16:14] VITALS: BP 107/73; PULSE 66
== END 2025-03-28 16:19 ==
LOC: LB.ED 12:54
DX: S72.144A Nondisplaced intertrochanteric fracture of right femur, initial encounter for closed fracture (principal); E78.00 Pure hypercholesterolemia, unspecified; I48.3 Typical atrial flutter; D50.9 Iron deficiency anemia, unspecified; E87.6 Hypokalemia; N18.31 Chronic kidney disease, stage 3a; N05.9 Unspecified nephritic syndrome with unspecified morphologic changes; Z88.0 Allergy status to penicillin; Z79.899 Other long term (current) drug therapy; Z90.49 Acquired absence of other specified parts of digestive tract; W18.11XA Fall from or off toilet without subsequent striking against object, initial encounter
CPT/HCPCS: 36415; 72170; 73552-RT; 80048; 85025; 96374; 96375; 96376; 99284; 99284-25; A0425; A0428; A0429; A9270-GY; J2270; J2405